=== PATIENT | male | born 1945 | race Caucasian/White ===

== ENCOUNTER → 2016-07-29 | Outpatient (CLI) | payer OTHER ==
[~2016-07-29] MED LIST: ATOR1TAB21 PO; LISI10TA4 PO; METF850T PO; NOVO70VL SQ; OMEP20CA3 PO
[2016-07-29 11:35] LABS: MEAN CORPUSCULAR HGB CONC 31.6 g/dl (32.0-36.5); MEAN CORPUSCULAR VOLUME 79.1 fl (80.0-96.0); RED CELL DISTRIBUTION WIDTH 16.6 % (11.5-14.5); WHITE BLOOD COUNT 7.2 K/mm3 (4.0-10.0)
[2016-07-29 11:36] LABS: INR 0.99
[2016-07-29 12:44] LABS: ALBUMIN 3.4 GM/DL (3.2-5.2); ALBUMIN/GLOBULIN RATIO 0.94 (1.00-1.93); ALKALINE PHOSPHATASE 102 U/L (45-117); ALT/SGPT 32 U/L (12-78); ANION GAP 10 MEQ/L (8-16); AST/SGOT 24 U/L (15-37); BILIRUBIN,TOTAL 0.3 MG/DL (0.2-1.0); BLOOD UREA NITROGEN 21 MG/DL (7-18); CALCIUM LEVEL 9.1 MG/DL (8.8-10.2); CARBON DIOXIDE LEVEL 27 MEQ/L (21-32); CHLORIDE LEVEL 101 MEQ/L (98-107); CREATININE FOR GFR 1.03 MG/DL (0.70-1.30); GLOMERULAR FILTRATION RATE > 60.0 (>49); GLUCOSE, FASTING 143 MG/DL (80-110); POTASSIUM SERUM 4.5 MEQ/L (3.5-5.1); SODIUM LEVEL 138 MEQ/L (136-145)
--- NOTE | 2016-07-30 02:39 | REP ---
Clinical: Hypertension and chest pain. Technique: PA and lateral. Comparison: 05/31/2014. Findings: Left sided pleuroparenchymal changes appear relatively stable although subtle acute left basilar process cannot be excluded. The right hemithorax is clear. Visualized mediastinum and cardiac silhouette are normal. Skeletal structures are intact. Impression: Stable pleuroparenchymal changes involving the left hemithorax. While no obvious new findings are appreciated. Subtle superimposed acute process cannot be excluded. Signed by Jasmeet Plummer MD 07/30/2016 02:32 A
--- NOTE | 2016-07-30 07:10 | ECGEPIP ---
Stationary ECG Study [facility] Test Date: 2016-07-29 Pat Name: DHRUV NEWMAN Department: Room: - Gender: M Adolescent Specialist: : [id number] Requested By: Maria Del Carmen Sánchez Order Number: [id number] Reading MD: Crispin Long Measurements Intervals [place] Rate: 70 P: 53 DE: 139 QRS: 22 QRSD: 76 T: 5 QT: 366 QTc: 396 Interpretive Statements Normal sinus rhythm with sinus arrhythmia Delayed anterior R-wave progression Nonspecific T-wave abnormality No significant change since 07/30/2015 Electronically Signed On 07-30-2016 7:09:37 EDT by Crispin Long
== END ==
LOC: M ADMPAT 09:52
PROVIDERS: ATTEND Orthopaedic Surgery
DX: Z01.818 Encounter for other preprocedural examination (principal); M13.861 Other specified arthritis, right knee

== ENCOUNTER 2016-08-12 08:35 | Inpatient (IN) | payer OTHER ==
[2016-07-29 10:11] VITALS: BP 110/78
--- NOTE | 2016-08-08 15:02 | HPE ---
DATE OF ADMISSION: 08/12/2016 CHIEF COMPLAINT: Right knee pain and stiffness. ATTENDING PHYSICIAN: Dr. Gonzalo Hollis HISTORY OF PRESENT ILLNESS: This is a pleasant 70-year-old male patient with progressively worsening right knee pain and stiffness. He has pain with weightbearing activities and activities of daily living. He has failed to improve with conservative management. He has elected for surgery for his continued symptoms. He has consented for a right total knee arthroplasty. X-rays of his right knee notable for end-stage degenerative changes of the right knee. ALLERGIES: No known drug allergies. CURRENT MEDICATIONS: - metformin 850 mg one tablet three times a day - atorvastatin 20 mg one tablet once per day - lisinopril 20 mg one tablet once per day - Prilosec 20 mg one tablet once per day - Novolin 70/30 10 units as directed, 25 units in the morning and 30 units at night. He adjusts his injections based on his glucose levels. PAST SURGICAL HISTORY: Includes prior surgery on his lungs. MEDICAL HISTORY: Includes type 2 diabetes, elevated cholesterol, hypertension, gastric reflux disease and erectile dysfunction. SOCIAL HISTORY: He does not smoke. He does not use alcohol. He is currently employed in the [employer] HISTORY: Noncontributory. REVIEW OF SYSTEMS: Denies fever or chills. Denies chest pain, shortness of breath or cough. Denies difficulty breathing. Denies recent upper respiratory infection or urinary tract infection (UTI) symptoms. Notes persistent pain in his right knee with weightbearing activities. Denies nausea or vomiting. PHYSICAL EXAMINATION: Physical exam today reveals a well-nourished, well-developed alert male patient. He walks with a limping gait. He favors his right side. He does not use assistive devices. Examination on the right knee reveals the skin around the knee to be intact, though there are numerous small wounds diffusely along the anterior mckeon consistent with scratching without any signs of infection. There is venous congestion of the right lower extremity. There is 1+ pitting edema of the right lower extremity. The calf is soft, nontender to palpation. Dorsalis pedis, posterior tibialis pulses are palpable. He can sensate light touch, though it is diffusely decreased from the mid mckeon through the foot on the right side. Exam of the knee range of motion reveals 5-95 degrees. Tenderness mainly medially. No irritability with hip range of motion. Neck is supple without adenopathy or jugular venous distention (JVD). Lungs are clear to auscultation without rales or wheeze. HEART: Regular rate and rhythm. ABDOMEN: Bowel sounds are present. VITAL SIGNS Blood pressure 130/70, pulse 84, respirations 18, height 68 inches, weight 178 pounds, temperature 98.4. LABORATORY DATA: The UA is notable for 2+ glucose, otherwise unremarkable. Urine culture with no growth. Nasal and sinus cultures notable for Moraxella catarrhalis, but no methicillin resistant Staphylococcus aureus (MRSA), does not require treatment at this juncture. Chest x-ray: Chronic changes of left hemithorax. No acute cardiopulmonary process noted. EKG: Sinus rhythm with a sinus arrhythmia. PT 13.2, INR 0.99, glucose 143, BUN 20, creatinine 1.03. Sodium 138, potassium 4.5, WBC count is 7.2, RBC count 4.6, hemoglobin 11.5, hematocrit 36.5. DIAGNOSIS: Symptomatic osteoarthritis of the right knee. PLAN: Consented for right total knee arthroplasty by Dr. Hollis.
[~2016-08-12] VITALS: Ht 175.3 cm; Wt 81.6 kg
[2016-08-12] VITALS (7 sets, daily range): BP systolic 137–186; BP diastolic 72–92; O2SAT 99
[~2016-08-12 08:35] MED LIST changes: +BUPIVACAINE LIPOSOME/PF 1.3% 20 ML VIAL (13.3MG/ML)(EXPAREL) As Ordered ONE; -METF850T PO; +METF850T4 PO; +MIDAZOLAM INJ 2 MG/2 ML VIAL (J2250) As Ordered ONE; +ceFAZolin 1GM INJ (J0690) As Ordered ONE; +fentaNYL 100 MCG/2 ML INJECTION (J3010) As Ordered ONE
[2016-08-12] MEDS ORDERED: LR 1,000 ML IV ONE (09:00)
[2016-08-12] MEDS ORDERED: LR 1,000 ML IV SCH ×2 (09:00→13:00)
[2016-08-12] MEDS ORDERED: ACETAMINOPHEN 500 MG TAB PO ONE (09:00)
[2016-08-12] MEDS ORDERED: MIDAZOLAM INJ 2 MG/2 ML VIAL (J2250) As Ordered ONE ×2 (09:19→10:49)
[2016-08-12] MEDS ORDERED: fentaNYL 100 MCG/2 ML INJECTION (J3010) As Ordered ONE (09:19)
[2016-08-12] MEDS ORDERED: TRANEXAMIC ACID 100 MG/ML 10ML VIAL As Ordered ONE (09:45)
[2016-08-12] MEDS ORDERED: EPINEPHrine INJ 1 MG/ML 1ML AMP As Ordered ONE (09:45)
[2016-08-12] MEDS ORDERED: fentaNYL 100 MCG/2 ML INJECTION (J3010) IV ONE (10:30)
[2016-08-12] MEDS ORDERED: MIDAZOLAM INJ 2 MG/2 ML VIAL (J2250) IV ONE (10:30)
[2016-08-12] MEDS ORDERED: PROPOFOL 200 MG/20 ML VIAL As Ordered ONE ×2 (10:49→12:00)
[2016-08-12] MEDS ORDERED: PHENYLephrine HCL 500 MCG/5 ML (100MCG/ML) SYRINGE (J2370) As Ordered ONE (11:13)
[2016-08-12] MEDS ORDERED: dexameTHASONE 10 MG/1 ML VIAL PRES.FREE (J1100) ONE (12:04)
[2016-08-12] MEDS ORDERED: EPINEPHrine INJ 1 MG/ML 1ML AMP ONE (12:04)
[2016-08-12] MEDS ORDERED: ROPIvacaine 0.5% 30 ML INJECTION (J2795) ONE (12:04)
[2016-08-12] MEDS ORDERED: MORPHINE 1MG/ML IN 0.9% NACL 100ML IV BAG As Ordered ONE (12:16)
[2016-08-12] MEDS ORDERED: diphenhydrAMINE INJ 50MG/ML VIAL (J1200) IV PRN (13:00)
[2016-08-12] MEDS ORDERED: NALBUPHINE HCL 10 MG/ML AMP (J2300) IV PRN (13:00)
[2016-08-12] MEDS ORDERED: ACETAMINOPHEN TAB 650MG DOSE (2X325MG) PO PRN (13:00)
[2016-08-12] MEDS ORDERED: fentaNYL 100 MCG/2 ML INJECTION (J3010) IV PRN (13:00)
[2016-08-12] MEDS ORDERED: NALOXONE INJ 0.4 MG/1 ML VIAL (J2310) IV PRN (13:00)
[2016-08-12] MEDS ORDERED: MORPHINE 1MG/ML IN 0.9% NACL 100ML IV BAG IV PRN (13:00)
[2016-08-12] MEDS ORDERED: ONDANSETRON 4MG/2ML VIAL (J2405) IV PRN ×2 (13:00)
[2016-08-12] MEDS ORDERED: FLEET ENEMA PR PRN (13:00)
[2016-08-12] MEDS ORDERED: EPIDURAL/PCA KEYS XX PRN (13:00)
--- NOTE | 2016-08-12 13:59 | CR ---
DATE OF CONSULTATION: 08/12/2016 70-year-old patient who sees Dr. Finn. He underwent a knee replacement today with Dr. Gonzalo Hollis. Hospitalist have been asked to consult for medical issues. He is actually fairly healthy. There was a time about 10 years ago when he had some issues with recurrent pleural effusion. Diagnosis was never established. It appears he underwent decortication procedure of his left lung at that time by Dr. Benson, or at least a procedure that sounds like that. He had remote pulmonary function test in the old record, which showed marked restrictive disease in 2006. Apparently, since that time, he has done well. He denies any functional limitations from a respiratory standpoint currently. He says he is back to doing everything, including working, walking, etc. without shortness of breath. He has no history of cardiac disease. His preop chest x-ray shows only chronic changes. Preop EKG shows poor R-wave progression, otherwise normal. His preoperative lab work is noteworthy for mild anemia with hematocrit of 36 with mild microcytic indices. He states he is due for a colonoscopy and he will mention his anemia to Dr. Finn. Dr. Finn apparently has already spoken to him. He is also a diabetic. He is on metformin and we will begin metformin tomorrow morning provided he does not have any issues with significant nausea and vomiting through the evening, but currently he looks and feels well postop. MEDICATIONS: Pulmonary issues as discussed above in remote past. history of hypertension, hypercholesterolemia, diabetes and gastroesophageal reflux disease. He also has microcytic anemia. He says his last colonoscopy was 8 to 10 years ago. He had right knee replacement today. ALLERGIES: No allergies to medication. SOCIAL HISTORY: Currently works for [employer] . Back in the 70s and 80s he worked for [employer] for about 10 years. He made molds for iron products. 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 No alcohol or tobacco. REVIEW OF SYSTEMS: Review of systems is negative. Currently, he feels fine. He is awake and alert and denies any symptoms whatsoever. PHYSICAL EXAMINATION 130/80, heart rate 80 with occasional PAC on the monitor. Respirations are 16. Temperature is afebrile. GENERAL APPEARANCE: Awake and alert 70-year-old white male. HEENT: Dentition is poor. Neck is supple. Carotids are normal. No bruits. No jugular venous distention (JVD). HEART: Was regular with a short systolic murmur. Chest is clear. He denies any issues on the left chest where he had his prior surgery. Abdomen is unremarkable. There is mild central obesity. Extremities are warm peripherally. He has excellent peripheral pulses. NEUROLOGIC: Intact. IMPRESSION AND PLAN: 1. Postoperative right knee replacement. 2. Microcytic anemia. Needs followup with Dr. Finn. He is due for colonoscopy. He will of a followup CBC in the morning. I anticipate some blood loss with his surgery. I have ordered iron studies. 3. Left lung issues, as above. These appear to be stable. 4. Diabetes. Resume metformin in morning. Otherwise, he is on sliding scale with Humalog 5. A history of hypertension. Resume lisinopril in the morning if blood pressure remains stable in the next 24 hours. 6. Lipids. We have ordered his statin postoperatively. 7. Gastroesophageal reflux disease. He continues on his proton pump inhibitor.
[2016-08-12] MEDS: LR 1,000 ML IV SCH (14:29)
[2016-08-12 15:25] LABS: PERCENT SATURATION 9.2 % (19.7-37.4)
[2016-08-12] MEDS ORDERED: WARFARIN SOD 5 MG TAB PO SCH (17:00)
[2016-08-12] MEDS: HumaLOG INSULIN (NovoLOG) PER UNIT SC SCH (17:30)
[2016-08-12] MEDS: ATORVASTATIN 20 MG TAB PO SCH (20:41)
[2016-08-12] MEDS: LEVEMIR (INSULIN DETEMIR) 1 UNITS/0.01ML SC SCH (21:00)
[2016-08-13] VITALS (7 sets, daily range): BP systolic 130–148; BP diastolic 62–73; O2SAT 94–96
[2016-08-13] MEDS: LR 1,000 ML IV SCH (01:30)
[2016-08-13 05:34] LABS: MEAN CORPUSCULAR HEMOGLOBIN 25.1 pg (27.0-33.0); MEAN CORPUSCULAR VOLUME 78.4 fl (80.0-96.0); RED CELL DISTRIBUTION WIDTH 16.9 % (11.5-14.5); WHITE BLOOD COUNT 7.2 K/mm3 (4.0-10.0)
[2016-08-13 05:50] LABS: INR 1.22
[2016-08-13 05:52] LABS: ANION GAP 5 MEQ/L (8-16); BLOOD UREA NITROGEN 16 MG/DL (7-18); CALCIUM LEVEL 8.6 MG/DL (8.8-10.2); CARBON DIOXIDE LEVEL 30 MEQ/L (21-32); CHLORIDE LEVEL 102 MEQ/L (98-107); CREATININE FOR GFR 1.03 MG/DL (0.70-1.30); GLOMERULAR FILTRATION RATE > 60.0 (>49); GLUCOSE, FASTING 277 MG/DL (80-110); POTASSIUM SERUM 4.3 MEQ/L (3.5-5.1); SODIUM LEVEL 137 MEQ/L (136-145)
[2016-08-13] MEDS ORDERED: ONDANSETRON 4 MG TAB (S0181) PO PRN (07:00)
--- NOTE | 2016-08-13 07:04 | RO ---
DATE OF PROCEDURE: 08/12/2016 PREPROCEDURE DIAGNOSIS: Right knee valgus degenerative arthritis. POSTPROCEDURE DIAGNOSIS: Right knee valgus degenerative arthritis. PROCEDURE: Right total knee arthroplasty using a cruciate sacrificing size #4 with a #4 tibial tray and a 12.5 mm rotating platform polyethylene insert and a size #38 mm button. All components were cemented. Prosthesis made by [employer]. It was a PFC knee. SURGEON: Dr. Maria Del Carmen Hollis. HEAD OF ACADEMIC TECHNOLOGY: Mr. Rodrigo Herron. ANESTHESIA: Spinal with right femoral nerve block. COMPLICATIONS: None. SPECIMENS: The joint surface. ESTIMATED BLOOD LOSS: Less than 20 mL. PROCEDURE: Antibiotics were given intravenously preoperatively and then a successful right femoral nerve block was performed. A tourniquet was placed on the right upper thigh and not inflated. The right lower extremity was prepped and draped in the usual sterile fashion. Then after appropriate time out, the tourniquet was inflated. Then a longitudinal incision was made for a medial parapatellar approach to the knee. Bovie cautery was used to coagulate crossing vessels. Arthrotomy was performed and subperiosteal dissection around the proximal medial portion of the tibia was performed all the way around the posteromedial corner because of significant varus deformity. Proximal lateral tibial plateau was dissected as well. We then everted the patella and flexed the knee. We drilled down the center of the femoral canal followed by the intramedullary blake and the distal femoral cutting block was applied set at 5 degree valgus cut for a right knee at 10 mm resection level. Because of the significant flexion contracture, I took an additional 2 mm at this point. The distal femoral osteotomy was then performed. The AP sizing jig measured at 4.5, thus I pinned it at #4 with a 3 degree external rotation block and then the 4-in-1 block applied The anterior posterior chamfer cuts then performed. At this point because of the varus deformity, I elected to proceed with a cruciate sacrificing knee. At this point, I cleaned out the PCL and the soft tissues within the trochlear notch and then the femoral cutting jig for a cruciate sacrificing femoral component was pinned into position and then we performed the osteotomy in the notch making sure it was nice and flush and we exposed the proximal tibia, used the extramedullary blake to be sure we were parallel to the mechanical access of the tibia and then we referenced off the medial tibial condyle set a 4 mm resection level using the 0 degree flexion block and then pinned it into position and then a secondary check was done with the extramedullary blake and then the proximal tibial osteotomy was performed. The laminar retail office manager was then placed medially and we performed a completion lateral meniscectomy with debridement of the posterior lateral osteophytes, then placed the laminar retail office manager laterally and performed a completion medial meniscectomy with debridement of the posterior medial osteophytes. Spacer block testing, the 10 mm showed us that he was just so lax, had a little varus laxity but is very stable to valgus laxity. Thus I felt the 12.5 gave him the best stability. He still had markedly improved extension compared to preoperatively. We then exposed the proximal tibia size for a size #4 tibial tray which is pinned into position followed by the reamer and broach and then the trial femoral component was applied and then the polyethylene was applied. We trialed between the 12.5 and the 10. The 12.5 seemed to give him the best stability. Thus at this point, I removed all the trial components. The Exparel was introduced subperiosteally around the femur as well as the posterior capsule and the trochlear notch as well as around the parapatellar area and the arthrotomy capsular edges. Mr. Herron mixed the cement on the back table. He was also critical to the success of this difficult operation by helping the manipulate the knee, helping to close the wound, helping to prepare the patient for surgery amongst many other tasks. I prepared the bony surfaces for cementing with copious amount of pulsatile lavage irrigant solution and then once the cement had been mixed, we cemented the tibial tray, removed excess cement, cemented the femoral component, removed excess cement, placed the polyethylene, brought the knee into extension and then everted the patella and cemented the patellar component, the removed the access cement and held it with a clamp until the cement had hardened. While we were waiting, a copious amount of pulsatile lavage irrigant solution was instilled into the knee followed by the tranexamic acid, then we began closing the arthrotomy with first #1 PDS sutures in the apex and at the medial parapatellar area and then a running #1 double arm Stratafix was used to close the capsule, then the tourniquet was released. Deep subdermal tissues were closed with interrupted #2-0 PDS sutures, skin was closed with robert covered by Adaptic dry sterile bulky dressing. He was then transferred to the recovery room in stable condition. There were no intraoperative complications.
[2016-08-13] MEDS: metFORMIN 850 MG TAB PO SCH ×3 (08:39→21:04)
[2016-08-13] MEDS: OMEPRAZOLE 20 MG CAP PO SCH (08:39)
[2016-08-13] MEDS: HumaLOG INSULIN (NovoLOG) PER UNIT SC SCH ×3 (08:39→17:24)
[2016-08-13] MEDS: MOM 30ML SUSPENSION UDC PO SCH (08:39)
[2016-08-13] MEDS: MIRALAX *UNIT DOSE* 17GM PACKET PO SCH (08:39)
[2016-08-13] MEDS: SENOKOT S TAB PO SCH ×2 (08:40→21:04)
[2016-08-13] MEDS: PERCOCET 5MG/325MG TAB PO PRN ×3 (08:40→17:24)
--- NOTE | 2016-08-13 10:24 | REP ---
Clinical: Status post knee replacement. Technique AP and cross-table lateral views. Findings: The patient is status post right knee replacement with normal positioning and appearance to the femoral and tibial components. Overlying postsurgical changes appreciated. Impression: Status post right knee replacement. Signed by Jasmeet Plummer MD 08/13/2016 10:15 A
--- NOTE | 2016-08-13 16:29 | IPNPDOC ---
Subjective Date Seen The patient was seen on 08/13/16. Subjective Chief Complaint/HPI The patient is a 70-year-old male admitted with a reason for visit of Right Knee Arthritis. General: Denies: Chills, Night Sweats Constitutional: Denies: Chills, Fever Eyes: Denies: Pain, Vision change ENT: Denies: Head Aches, Ear Pain Skin: Denies: Rash, Lesions Pulmonary: Denies: Dyspnea, Cough Cardiovascular: Denies: Chest Pain, Palpitations Gastrointestinal: Denies: Nausea, Vomiting Genitourinary: Denies: Dysuria, Frequency Hematologic: Denies: Bruising, Bleeding Excessively Objective Physical Examination General Exam: Positive: Alert, Cooperative, No Acute Distress ENT Exam: Positive: Atraumatic, Mucous membr. moist/pink Neck Exam: Negative: JVD Chest Exam: Positive: Clear to auscultation, Normal air movement Heart Exam: Positive: Rate Normal, Normal S1, Normal S2 Abdomen Exam: Positive: Soft, Negative: Tenderness Extremity Exam: Positive: Other (right knee with limited range of motion due to recent surgery, neurovascularly intact distally) Psych Exam: Positive: Oriented x 3 Assessment /Plan Plan/VTE VTE Prophylaxis Ordered?: Yes Plan S/P Right Knee Replacement Pain Mgmt, DVT prophylaxis as per surgery Hypertension Cont lisinopril Diabetes Mellitus Continue metformin, Levemir Continue insulin sliding scale for additional coverage Dyslipidemia Continue statin GERD Prilosec VS, I&O, 24H, Fishbone Vital Signs/I&O Vital Signs Date Time Temp Pulse Resp B/P (MAP) Pulse Ox O2 Delivery O2 Flow Rate FiO2 08/13/16 14:21 16 08/13/16 14:00 99.2 87 148/73 (98) 99 Room Air 08/13/16 06:00 2.0 I&O- Last 24 Hours up to 6 AM 08/13/16 06:00 Intake Total 2190 ml Output Total 1975 ml Balance 215 ml Laboratory Data 24H LABS Laboratory Tests 2 08/12/16 20:21: Bedside Glucose (Misc Panel) 428H 08/13/16 05:25: Prothrombin Time 15.5H, Prothromb Time International Ratio 1.22, Anion Gap 5L, Glomerular Filtration Rate > 60.0, Blood Urea Nitrogen 16, Creatinine 1.03, Sodium Level 137, Potassium Level 4.3, Chloride Level 102, Carbon Dioxide Level 30, Calcium Level 8.6L 08/13/16 11:33: Bedside Glucose (Misc Panel) 276H CBC/BMP Laboratory Tests 08/13/16 05:25 Red Blood Count 4.00 L, Mean Corpuscular Volume 78.4 L, Mean Corpuscular Hemoglobin 25.1 L, Mean Corpuscular Hemoglobin Concent 32.0, Red Cell Distribution Width 16.9 H, Calcium Level 8.6 L NEFTALI ERVIN MD Aug 13, 2016 16:29
[2016-08-13] MEDS ORDERED: WARFARIN SOD 5 MG TAB PO ONE (17:00)
[2016-08-13] MEDS: LISINOPRIL 10 MG TAB PO SCH (17:23)
[2016-08-13] MEDS: LEVEMIR (INSULIN DETEMIR) 1 UNITS/0.01ML SC SCH (21:00)
[2016-08-13] MEDS: ATORVASTATIN 20 MG TAB PO SCH (21:05)
[2016-08-14] MEDS: PERCOCET 5MG/325MG TAB PO PRN ×3 (03:54→20:05)
[2016-08-14 06:00] VITALS: BP 107/64
[2016-08-14 06:55] LABS: MEAN CORPUSCULAR HEMOGLOBIN 25.3 pg (27.0-33.0); MEAN CORPUSCULAR HGB CONC 32.4 g/dl (32.0-36.5); MEAN CORPUSCULAR VOLUME 78.3 fl (80.0-96.0); RED CELL DISTRIBUTION WIDTH 16.8 % (11.5-14.5); WHITE BLOOD COUNT 9.5 K/mm3 (4.0-10.0)
[2016-08-14 07:03] LABS: INR 1.77
[2016-08-14 07:07] LABS: ANION GAP 6 MEQ/L (8-16); BLOOD UREA NITROGEN 19 MG/DL (7-18); CALCIUM LEVEL 8.9 MG/DL (8.8-10.2); CARBON DIOXIDE LEVEL 29 MEQ/L (21-32); CHLORIDE LEVEL 98 MEQ/L (98-107); CREATININE FOR GFR 0.98 MG/DL (0.70-1.30); GLOMERULAR FILTRATION RATE > 60.0 (>49); GLUCOSE, FASTING 224 MG/DL (80-110); POTASSIUM SERUM 4.4 MEQ/L (3.5-5.1); SODIUM LEVEL 133 MEQ/L (136-145)
[2016-08-14] MEDS: HumaLOG INSULIN (NovoLOG) PER UNIT SC SCH ×3 (08:30→17:30)
[2016-08-14] MEDS: MIRALAX *UNIT DOSE* 17GM PACKET PO SCH (08:30)
[2016-08-14] MEDS: MOM 30ML SUSPENSION UDC PO SCH (08:30)
[2016-08-14] MEDS: metFORMIN 850 MG TAB PO SCH ×3 (08:31→22:00)
[2016-08-14] MEDS: LISINOPRIL 10 MG TAB PO SCH (08:31)
[2016-08-14] MEDS: OMEPRAZOLE 20 MG CAP PO SCH (08:32)
[2016-08-14] MEDS: SENOKOT S TAB PO SCH ×2 (08:32→22:00)
[2016-08-14 09:18] VITALS: O2SAT 97
--- NOTE | 2016-08-14 12:23 | IPNPDOC ---
Subjective Date Seen The patient was seen on 08/14/16. Subjective Chief Complaint/HPI The patient is a 70-year-old male admitted with a reason for visit of Right Knee Arthritis. General: Denies: Chills, Night Sweats Constitutional: Denies: Chills, Fever Eyes: Denies: Pain, Vision change ENT: Denies: Head Aches, Ear Pain Skin: Denies: Rash, Lesions Pulmonary: Denies: Dyspnea, Cough Cardiovascular: Denies: Chest Pain, Palpitations Gastrointestinal: Denies: Nausea, Vomiting Genitourinary: Denies: Dysuria, Frequency Hematologic: Denies: Bruising, Bleeding Excessively Objective Physical Examination General Exam: Positive: Alert, Cooperative, No Acute Distress ENT Exam: Positive: Atraumatic, Mucous membr. moist/pink Neck Exam: Negative: JVD Chest Exam: Positive: Clear to auscultation, Normal air movement Heart Exam: Positive: Rate Normal, Normal S1, Normal S2 Abdomen Exam: Positive: Soft, Negative: Tenderness Extremity Exam: Positive: Other (right knee with limited range of motion due to recent surgery, neurovascularly intact distally) Psych Exam: Positive: Oriented x 3 Assessment /Plan Plan/VTE VTE Prophylaxis Ordered?: Yes Plan S/P Right Knee Replacement Pain Mgmt, DVT prophylaxis as per surgery Hypertension Cont lisinopril Diabetes Mellitus Continue metformin, Levemir Continue insulin sliding scale for additional coverage Dyslipidemia Continue statin GERD Prilosec VS, I&O, 24H, Fishbone Vital Signs/I&O Vital Signs Date Time Temp Pulse Resp B/P (MAP) Pulse Ox O2 Delivery O2 Flow Rate FiO2 08/14/16 09:20 97 Room Air 08/14/16 09:01 14 08/14/16 08:31 107/64 08/14/16 06:00 98.5 86 08/13/16 06:00 2.0 I&O- Last 24 Hours up to 6 AM 08/14/16 05:59 Intake Total 1560 ml Output Total 1650 ml Balance -90 ml Laboratory Data 24H LABS Laboratory Tests 2 08/13/16 17:07: Bedside Glucose (Misc Panel) 223H 08/13/16 20:22: Bedside Glucose (Misc Panel) 278H 08/14/16 06:29: Prothrombin Time 20.7H, Prothromb Time International Ratio 1.77, Anion Gap 6L, Glomerular Filtration Rate > 60.0, Blood Urea Nitrogen 19H, Creatinine 0.98, Sodium Level 133L, Potassium Level 4.4, Chloride Level 98, Carbon Dioxide Level 29, Calcium Level 8.9 08/14/16 11:55: Bedside Glucose (Misc Panel) 267H CBC/BMP Laboratory Tests 08/14/16 06:29 Red Blood Count 4.06 L, Mean Corpuscular Volume 78.3 L, Mean Corpuscular Hemoglobin 25.3 L, Mean Corpuscular Hemoglobin Concent 32.4, Red Cell Distribution Width 16.8 H, Calcium Level 8.9 NEFTALI ERVIN MD Aug 14, 2016 12:23
[2016-08-14 14:00] VITALS: BP 131/71
[2016-08-14] MEDS ORDERED: WARFARIN SOD 5 MG TAB PO ONE (17:00)
[2016-08-14] MEDS: ATORVASTATIN 20 MG TAB PO SCH (21:57)
[2016-08-14 22:00] VITALS: BP 126/83
[2016-08-14] MEDS: LEVEMIR (INSULIN DETEMIR) 1 UNITS/0.01ML SC SCH (22:02)
[2016-08-15 03:25] VITALS: O2SAT 98
[2016-08-15 06:29] LABS: MEAN CORPUSCULAR HEMOGLOBIN 25.2 pg (27.0-33.0); MEAN CORPUSCULAR HGB CONC 32.7 g/dl (32.0-36.5); MEAN CORPUSCULAR VOLUME 76.9 fl (80.0-96.0); RED CELL DISTRIBUTION WIDTH 16.7 % (11.5-14.5); WHITE BLOOD COUNT 6.6 K/mm3 (4.0-10.0)
[2016-08-15 06:41] LABS: INR 1.94
[2016-08-15 06:49] LABS: ANION GAP 6 MEQ/L (8-16); BLOOD UREA NITROGEN 18 MG/DL (7-18); CALCIUM LEVEL 8.6 MG/DL (8.8-10.2); CARBON DIOXIDE LEVEL 30 MEQ/L (21-32); CHLORIDE LEVEL 100 MEQ/L (98-107); CREATININE FOR GFR 0.92 MG/DL (0.70-1.30); GLOMERULAR FILTRATION RATE > 60.0 (>49); GLUCOSE, FASTING 145 MG/DL (80-110); SODIUM LEVEL 136 MEQ/L (136-145)
[2016-08-15] MEDS ORDERED: PERC5TAB12 PO (08:07)
[2016-08-15] MEDS ORDERED: COUM2.5T17 PO (08:07)
[2016-08-15] MEDS: MIRALAX *UNIT DOSE* 17GM PACKET PO SCH (08:18)
[2016-08-15] MEDS: HumaLOG INSULIN (NovoLOG) PER UNIT SC SCH (08:19)
[2016-08-15] MEDS: PERCOCET 5MG/325MG TAB PO PRN (08:19)
[2016-08-15] MEDS: OMEPRAZOLE 20 MG CAP PO SCH (08:19)
[2016-08-15] MEDS: metFORMIN 850 MG TAB PO SCH (08:19)
[2016-08-15 08:20] VITALS: BP 107/64
[2016-08-15] MEDS: MOM 30ML SUSPENSION UDC PO SCH (08:20)
[2016-08-15] MEDS: SENOKOT S TAB PO SCH (08:20)
[2016-08-15] MEDS: LISINOPRIL 10 MG TAB PO SCH (08:20)
[2016-08-15 11:19] VITALS: BP 129/62
--- NOTE | 2016-08-15 15:59 | IPNPDOC ---
Subjective Date Seen The patient was seen on 08/15/16. Subjective Chief Complaint/HPI The patient is a 70-year-old male admitted with a reason for visit of Right Knee Arthritis. General: Denies: Chills, Night Sweats Constitutional: Denies: Chills, Fever Eyes: Denies: Pain, Vision change ENT: Denies: Head Aches, Ear Pain Skin: Denies: Rash, Lesions Pulmonary: Denies: Dyspnea, Cough Cardiovascular: Denies: Chest Pain, Palpitations Gastrointestinal: Denies: Nausea, Vomiting Genitourinary: Denies: Dysuria, Frequency Objective Physical Examination General Exam: Positive: Alert, Cooperative, No Acute Distress ENT Exam: Positive: Atraumatic, Mucous membr. moist/pink Neck Exam: Negative: JVD Chest Exam: Positive: Clear to auscultation, Normal air movement Heart Exam: Positive: Rate Normal, Normal S1, Normal S2 Abdomen Exam: Positive: Soft, Negative: Tenderness Extremity Exam: Positive: Other (right knee with limited range of motion due to recent surgery, neurovascularly intact distally) Psych Exam: Positive: Oriented x 3 Assessment /Plan Plan/VTE VTE Prophylaxis Ordered?: Yes Plan S/P Right Knee Replacement Pain Mgmt, DVT prophylaxis as per surgery Hypertension Cont lisinopril Diabetes Mellitus Continue metformin, Levemir Continue insulin sliding scale for additional coverage Dyslipidemia Continue statin GERD Prilosec VS, I&O, 24H, Natalie Vital Signs/I&O Vital Signs Date Time Temp Pulse Resp B/P (MAP) Pulse Ox O2 Delivery O2 Flow Rate FiO2 08/15/16 11:19 97.9 81 16 129/62 (84) 98 Room Air 08/13/16 06:00 2.0 I&O- Last 24 Hours up to 6 AM 08/15/16 06:00 Intake Total 1320 ml Output Total 1125 ml Balance 195 ml Laboratory Data 24H LABS Laboratory Tests 2 08/14/16 16:55: Bedside Glucose (Misc Panel) 214H 08/14/16 20:11: Bedside Glucose (Misc Panel) 202H 08/15/16 06:10: Prothrombin Time 22.2H, Prothromb Time International Ratio 1.94, Anion Gap 6L, Glomerular Filtration Rate > 60.0, Blood Urea Nitrogen 18, Creatinine 0.92, Sodium Level 136, Potassium Level 4.0, Chloride Level 100, Carbon Dioxide Level 30, Calcium Level 8.6L CBC/BMP Laboratory Tests 08/15/16 06:10 Red Blood Count 3.68 L, Mean Corpuscular Volume 76.9 L, Mean Corpuscular Hemoglobin 25.2 L, Mean Corpuscular Hemoglobin Concent 32.7, Red Cell Distribution Width 16.7 H, Calcium Level 8.6 L NEFTALI ERVIN MD Aug 15, 2016 15:59
--- NOTE | 2016-08-19 09:39 | DSES ---
DATE OF ADMISSION: 08/12/2016 DATE OF DISCHARGE: 08/15/2016 ADMITTING DIAGNOSIS: Osteoarthritis right knee. OTHER DIAGNOSES: 1. Hypertension. 2. Elevated cholesterol. 3. Gastric reflux disease. 4. Anemia. DISCHARGE DIAGNOSIS: Osteoarthritis right knee status post right total knee arthroplasty. OPERATION PERFORMED: Right total knee arthroplasty. HISTORY: This is a pleasant 70-year-old male patient with progressively worsening right knee pain and stiffness. He failed to improve with conservative management. He was admitted for elective knee replacement on the right side. HOSPITAL COURSE: The patient was admitted on day of surgery and underwent a right total knee arthroplasty which was uneventful. He did well in the postoperative period. His hospital course was without complications. He was up with physical therapy per their protocol and his pain was controlled. On the day of discharge, he was doing well. Weight bearing as tolerated on his right lower extremity and moving his right knee to prevent stiffness. He will use adjusted dose Coumadin and thromboembolic deterrent (BENEDICTO) stockings for 30 days postoperatively for deep vein thrombosis (DVT) prophylaxis. He will use oral pain medications for pain control and resume his preoperative medications and diet. He was given instructions to include, but not limited to wound monitoring and activity limitations. He will follow up in our office in 10-14 days for surgical followup. Please refer to the medical record for further details. Edited: 08/19/2016 tremaine
== END 2016-08-15 12:25 | disposition home health service (06) | DRG 470 ==
LOC: M OR 08:35 → M MS5PR 13:45
PROVIDERS: ADMIT Orthopaedic Surgery; ATTEND Orthopaedic Surgery
PROC: 0SRC0J9 Replacement of Right Knee Joint with Synthetic Substitute, Cemented, Open Approach (ICD-10-PCS; principal; 2016-08-12 10:45)
DX: M17.11 Unilateral primary osteoarthritis, right knee (principal); E11.9 Type 2 diabetes mellitus without complications; I10 Essential (primary) hypertension; K21.9 Gastro-esophageal reflux disease without esophagitis; E78.5 Hyperlipidemia, unspecified; Z79.4 Long term (current) use of insulin; Z79.899 Other long term (current) drug therapy

== ENCOUNTER → 2016-08-22 | Outpatient (REF) | payer OTHER ==
[~2016-08-22] MED LIST changes: -BUPIVACAINE LIPOSOME/PF 1.3% 20 ML VIAL (13.3MG/ML)(EXPAREL) As Ordered ONE; +COUM2.5T17 PO; -MIDAZOLAM INJ 2 MG/2 ML VIAL (J2250) As Ordered ONE; +PERC5TAB12 PO; -ceFAZolin 1GM INJ (J0690) As Ordered ONE; -fentaNYL 100 MCG/2 ML INJECTION (J3010) As Ordered ONE
[2016-08-22 15:44] LABS: INR 1.46
== END ==
LOC: M SHH 15:13
PROVIDERS: ATTEND Nurse Practitioner Family
DX: Z79.01 Long term (current) use of anticoagulants (principal)

== ENCOUNTER → 2016-08-26 | Outpatient (REF) | payer OTHER ==
[2016-08-26 11:22] LABS: INR 1.09
== END ==
LOC: M SHH 11:03
PROVIDERS: ATTEND Nurse Practitioner Family
DX: Z79.01 Long term (current) use of anticoagulants (principal)

== ENCOUNTER → 2016-08-29 | Outpatient (REF) | payer OTHER ==
[2016-08-29 14:46] LABS: INR 1.11
== END ==
LOC: M SHH 14:18
PROVIDERS: ATTEND Nurse Practitioner Family
DX: Z79.01 Long term (current) use of anticoagulants (principal)

== ENCOUNTER → 2016-09-02 | Outpatient (REF) | payer OTHER ==
[2016-09-02 15:23] LABS: INR 1.31
== END ==
LOC: M SHH 14:47
PROVIDERS: ATTEND Nurse Practitioner Family
DX: Z79.01 Long term (current) use of anticoagulants (principal)

== ENCOUNTER → 2016-09-05 | Outpatient (REF) | payer OTHER ==
[2016-09-05 14:06] LABS: INR 1.32
== END ==
LOC: M SHH 13:21
PROVIDERS: ATTEND Nurse Practitioner Family
DX: Z79.01 Long term (current) use of anticoagulants (principal)

== ENCOUNTER → 2016-09-09 | Outpatient (REF) | payer OTHER ==
[2016-09-09 13:23] LABS: INR 1.23
== END ==
LOC: M SHH 12:30
PROVIDERS: ATTEND Nurse Practitioner Family
DX: Z79.01 Long term (current) use of anticoagulants (principal)

== ENCOUNTER 2017-04-09 11:39 | Day surgery (SDC) | payer OTHER ==
[~2017-04-09 11:39] MED LIST changes: -ATOR1TAB21 PO; -COUM2.5T17 PO; -LISI10TA4 PO; -METF850T4 PO; -NOVO70VL SQ; -OMEP20CA3 PO; -PERC5TAB12 PO; +PROPOFOL 200 MG/20 ML VIAL As Ordered
[2017-04-09] MEDS: NS 1,000 ML IV (12:06)
[2017-04-09 12:29] LABS: BEDSIDE GLUCOSE 84 MG/DL (83-110)
== END 2017-04-09 14:16 | disposition home or self-care (01) ==
LOC: M OPP 11:39
DX: Z12.11 Encounter for screening for malignant neoplasm of colon (principal); Z86.010 Personal history of colon polyps; D12.2 Benign neoplasm of ascending colon; K64.0 First degree hemorrhoids; K57.30 Diverticulosis of large intestine without perforation or abscess without bleeding; I10 Essential (primary) hypertension; E78.5 Hyperlipidemia, unspecified; E11.9 Type 2 diabetes mellitus without complications; R12 Heartburn; K21.9 Gastro-esophageal reflux disease without esophagitis; M19.90 Unspecified osteoarthritis, unspecified site; G31.84 Mild cognitive impairment of uncertain or unknown etiology; Z79.899 Other long term (current) drug therapy; Z79.4 Long term (current) use of insulin
CPT/HCPCS: 45380

== ENCOUNTER 2017-09-13 09:25 | Emergency (ER) | payer OTHER | END 2017-09-13 12:34 | disposition home or self-care (01) | LOC: M ED 09:25 | DX: M25.561 Pain in right knee (principal); M25.571 Pain in right ankle and joints of right foot; R22.41 Localized swelling, mass and lump, right lower limb; E11.9 Type 2 diabetes mellitus without complications; I10 Essential (primary) hypertension; F41.9 Anxiety disorder, unspecified; K21.9 Gastro-esophageal reflux disease without esophagitis; Z79.899 Other long term (current) drug therapy; Z79.4 Long term (current) use of insulin | CPT/HCPCS: 93971 ==

== ENCOUNTER → 2018-05-12 | Outpatient (CLI) | payer MEDICARE ==
[~2018-05-12] MED LIST changes: +ATOR1TAB21 PO; +COUM2.5T17 PO; +LISI10TA4 PO; +METF850T4 PO; +NOVO70VL SQ; +OMEP20CA3 PO; +PERC5TAB12 PO; -PROPOFOL 200 MG/20 ML VIAL As Ordered
[2018-05-12 10:25] LABS: BASO % 0.5 % (0.0-1.0); EOS # 0.1 10^3/uL (0.0-0.50); EOS % 2.1 % (0.0-3.0); HEMATOCRIT 37.1 % (42.0-52.0); HEMOGLOBIN 11.2 g/dl (13.5-17.5); LYMPH # 1.6 10^3/uL (1.5-4.5); LYMPH % 24.6 % (24.0-44.0); MEAN CORPUSCULAR HGB CONC 30.2 g/dl (32.0-36.5); MEAN CORPUSCULAR VOLUME 76.3 fl (80.0-96.0); MONO # 0.4 10^3/uL (0.0-0.8); MONO % 6.6 % (0.0-5.0); NEUTROPHILS # 4.2 10^3/uL (1.8-7.7); NEUTROPHILS % 65.7 % (36.0-66.0); PLATELET COUNT, AUTOMATED 325 10^3/uL (150-450); RED BLOOD COUNT 4.86 10^6/uL (4.30-6.10); WHITE BLOOD COUNT 6.3 10^3/uL (4.0-10.0)
[2018-05-12 11:14] LABS: ERYTHROCYTE SEDIMENTATION RATE 26 mm/hr (0-20)
== END ==
LOC: M LAB 09:23
PROVIDERS: ATTEND Orthopaedic Surgery
DX: M24.561 Contracture, right knee (principal)

== ENCOUNTER → 2018-12-21 | Outpatient (REF) | payer MEDICARE ==
[~2018-12-21] MED LIST changes: -OMEP20CA3 PO; +OMEP20CA4 PO
[2018-12-21 12:52] LABS: BASO % 0.5 % (0.0-1.0); EOS # 0.1 10^3/uL (0.0-0.5); EOS % 2.2 % (0.0-3.0); HEMATOCRIT 37.6 % (42.0-52.0); HEMOGLOBIN 10.9 g/dl (13.5-17.5); LYMPH # 1.2 10^3/uL (1.5-5.0); LYMPH % 18.6 % (24.0-44.0); MEAN CORPUSCULAR HEMOGLOBIN 23.2 pg (27.0-33.0); MEAN CORPUSCULAR VOLUME 80.2 fl (80.0-96.0); MONO # 0.5 10^3/uL (0.0-0.8); MONO % 7.1 % (0.0-5.0); NEUTROPHILS # 4.5 10^3/uL (1.5-8.5); NEUTROPHILS % 71.1 % (36.0-66.0); PLATELET COUNT, AUTOMATED 335 10^3/uL (150-450); RED BLOOD COUNT 4.69 10^6/uL (4.30-6.10); WHITE BLOOD COUNT 6.4 10^3/uL (4.0-10.0)
[2018-12-21 13:52] LABS: ERYTHROCYTE SEDIMENTATION RATE 39 mm/hr (0-20)
== END ==
LOC: M LABDRAW1 11:35
PROVIDERS: ATTEND Orthopaedic Surgery
DX: M25.561 Pain in right knee (principal)

== ENCOUNTER → 2019-03-17 | Outpatient (CLI) | payer MEDICARE ==
[~2019-03-17] MED LIST changes: +OMEP1CAP73 PO; -OMEP20CA4 PO
--- NOTE | 2019-03-17 13:50 | REP ---
TRIPLE PHASE BONE SCAN OF THE KNEES: Following the intravenous administration of 22 millicuries technetium 99m MDP, patient's knees are imaged in the flow phase in the anterior and posterior projections. There is symmetrical blood flow. Immediate blood pool and two-hour delayed images are performed of the knees in various projections. Photopenic right knee prosthesis is noted. There is mild blood pooling in the right suprapatellar bursal region. There is mild increased uptake in the medial and lateral tibial plateaus and femoral condyles of the right knee adjacent to the metallic prosthetic components. No abnormality is seen of the left knee osseous structures. IMPRESSION: Right knee prosthesis. Mild increased uptake in the femoral condyles and tibial plateaus on the right is nonspecific. This could be postsurgical uptake. Some degree of loosening cannot totally be excluded. Electronically Signed by Surendra Solomon MD 03/17/2019 11:03 P
== END ==
LOC: M RAD 07:54
PROVIDERS: ATTEND Orthopaedic Surgery
DX: M25.561 Pain in right knee (principal); Z96.651 Presence of right artificial knee joint

== ENCOUNTER → 2019-07-20 | Outpatient (REF) | payer MEDICARE ==
[2019-07-20 15:42] LABS: SOURCE, BODY FLUID RT KNEE
[2019-07-20 15:43] LABS: SYNOVIAL FLUID COLOR PALE YELLOW (YELLOW)
[2019-07-20 15:45] LABS: CRYSTALS, BODY FLUID NONE SEEN (NONE SEEN); SOURCE, BODY FLUID CRYSTALS RT KNEE
[2019-07-20 16:17] LABS: SOURCE, BODY FLUID GLUCOSE RT KNEE; SOURCE, BODY FLUID URIC ACID RT KNEE
[2019-07-21 04:26] LABS: BODY FLUID RHEUMATOID SCREEN NEGATIVE (NEGATIVE); MUCIN CLOT TEST 4+ (4+)
== END ==
LOC: M LAB REF 15:09
PROVIDERS: ATTEND Orthopaedic Surgery
DX: M25.561 Pain in right knee (principal)

== ENCOUNTER → 2019-10-30 | Outpatient (CLI) | payer MEDICARE | LOC: M LABSMTC 10:05 | PROVIDERS: ATTEND Anesthesiology | DX: Z01.818 Encounter for other preprocedural examination (principal); Z11.59 Encounter for screening for other viral diseases; Z20.828 Contact with and (suspected) exposure to other viral communicable diseases | CPT/HCPCS: C9803; U0003 ==

== ENCOUNTER 2019-11-04 09:39 | Day surgery (SDC) | payer MEDICARE ==
[~2019-11-04] VITALS: Ht 175.3 cm; Wt 84.4 kg
[~2019-11-04 09:39] MED LIST changes: +DUOVISC (0.50ML VISCOAT/0.55ML PROVISC) OPHTH KIT As Ordered ONE; +OFLOXACIN 0.3 % (OCUFLOX) OPTH SOL 5ML OD ONE; +PHENYLEPHRINE 2.5% OPHTH SOL 2ML OD ONE; +POVIDONE-IODINE 5% OPHTH PREP SOL 30ML As Ordered ONE; +PROPARACAINE 0.5% OPHTH SOL 15ML OD ONE; +TROPICAMIDE 1% OPHTH SOLN 2ML OD ONE
[2019-11-04] MEDS ORDERED: OFLOXACIN 0.3 % (OCUFLOX) OPTH SOL 5ML As Ordered ONE (11:18)
[2019-11-04] MEDS ORDERED: TROPICAMIDE 1% OPHTH SOLN 2ML As Ordered ONE (11:18)
[2019-11-04] MEDS ORDERED: fentaNYL 100 MCG/2 ML INJECTION (J3010) As Ordered ONE (12:25)
[2019-11-04] MEDS ORDERED: MIDAZOLAM INJ 2MG/2ML VIAL (J2250 PER 1MG) As Ordered ONE (12:25)
[2019-11-04] MEDS ORDERED: CEFUROXIME 1MG/0.1ML INTRACAMERAL INJ As Ordered ONE (12:26)
[2019-11-04] MEDS ORDERED: BSS IRR 500ML/OMIDRIA 4ML IRR BAG (OR ONLY) (J1097 PER ML) As Ordered ONE (12:26)
[2019-11-04 13:00] VITALS: BP 119/65
== END 2019-11-04 13:20 | disposition home or self-care (01) ==
LOC: M SDC 09:39
PROVIDERS: ATTEND Ophthalmology
DX: H25.11 Age-related nuclear cataract, right eye (principal); E78.00 Pure hypercholesterolemia, unspecified; E11.9 Type 2 diabetes mellitus without complications; K21.9 Gastro-esophageal reflux disease without esophagitis; M17.11 Unilateral primary osteoarthritis, right knee; Z79.84 Long term (current) use of oral hypoglycemic drugs; Z79.899 Other long term (current) drug therapy
CPT/HCPCS: 66984; J1097; J2250; J3010; V2632

== ENCOUNTER → 2019-11-06 | Outpatient (CLI) | payer MEDICARE ==
[~2019-11-06] MED LIST changes: -DUOVISC (0.50ML VISCOAT/0.55ML PROVISC) OPHTH KIT As Ordered ONE; -OFLOXACIN 0.3 % (OCUFLOX) OPTH SOL 5ML OD ONE; -PHENYLEPHRINE 2.5% OPHTH SOL 2ML OD ONE; -POVIDONE-IODINE 5% OPHTH PREP SOL 30ML As Ordered ONE; -PROPARACAINE 0.5% OPHTH SOL 15ML OD ONE; -TROPICAMIDE 1% OPHTH SOLN 2ML OD ONE
== END ==
LOC: M LABSMTC 09:29
PROVIDERS: ATTEND Anesthesiology
DX: Z01.812 Encounter for preprocedural laboratory examination (principal); Z20.828 Contact with and (suspected) exposure to other viral communicable diseases
CPT/HCPCS: C9803; U0003

== ENCOUNTER 2019-11-11 06:19 | Day surgery (SDC) | payer MEDICARE ==
[~2019-11-11] VITALS: Ht 175.3 cm; Wt 82.1 kg
[2019-11-11] MEDS ORDERED: PROPARACAINE 0.5% OPHTH SOL 15ML As Ordered ONE (06:32)
[2019-11-11] MEDS ORDERED: PHENYLEPHRINE 2.5% OPHTH SOL 2ML As Ordered ONE (06:32)
[2019-11-11] MEDS ORDERED: OFLOXACIN 0.3 % (OCUFLOX) OPTH SOL 5ML As Ordered ONE (06:32)
[2019-11-11] MEDS ORDERED: TROPICAMIDE 1% OPHTH SOLN 2ML As Ordered ONE (06:32)
[2019-11-11] MEDS ORDERED: DUOVISC (0.50ML VISCOAT/0.55ML PROVISC) OPHTH KIT As Ordered ONE (06:45)
[2019-11-11] MEDS ORDERED: POVIDONE-IODINE 5% OPHTH PREP SOL 30ML As Ordered ONE (06:45)
[2019-11-11] MEDS ORDERED: BSS IRR 500ML/OMIDRIA 4ML IRR BAG (OR ONLY) (J1097 PER ML) As Ordered ONE (06:46)
[2019-11-11] MEDS ORDERED: CEFUROXIME 1MG/0.1ML INTRACAMERAL INJ As Ordered ONE (06:46)
[2019-11-11] MEDS ORDERED: PROPARACAINE 0.5% OPHTH SOL 15ML OS ONE (07:00)
[2019-11-11] MEDS ORDERED: OFLOXACIN 0.3 % (OCUFLOX) OPTH SOL 5ML OS ONE (07:00)
[2019-11-11] MEDS ORDERED: TROPICAMIDE 1% OPHTH SOLN 2ML OS ONE (07:00)
[2019-11-11] MEDS ORDERED: PHENYLEPHRINE 2.5% OPHTH SOL 2ML OS ONE (07:00)
[2019-11-11] MEDS ORDERED: MIDAZOLAM INJ 2MG/2ML VIAL (J2250 PER 1MG) As Ordered ONE (07:36)
[2019-11-11] MEDS ORDERED: fentaNYL 100 MCG/2 ML INJECTION (J3010) As Ordered ONE (07:36)
[2019-11-11 08:05] VITALS: BP 141/69
== END 2019-11-11 08:54 | disposition home or self-care (01) ==
LOC: M SDC 06:19
PROVIDERS: ATTEND Ophthalmology
DX: H25.12 Age-related nuclear cataract, left eye (principal); I10 Essential (primary) hypertension; E78.5 Hyperlipidemia, unspecified; E11.9 Type 2 diabetes mellitus without complications; K21.9 Gastro-esophageal reflux disease without esophagitis; Z79.84 Long term (current) use of oral hypoglycemic drugs; Z79.899 Other long term (current) drug therapy
CPT/HCPCS: 66984; J1097; J2250; J3010; V2632

== ENCOUNTER → 2021-03-06 | Outpatient (CLI) | payer MEDICARE ==
[~2021-03-06] MED LIST changes: +LISI10TA22 PO; -LISI10TA4 PO
== END ==
LOC: M RAD 13:55
PROVIDERS: ATTEND Internal Medicine Cardiovascular Disease
DX: R06.00 Dyspnea, unspecified (principal)

== ENCOUNTER → 2021-07-05 | Outpatient (CLI) | payer MEDICARE | LOC: M PLAIMG 12:04 | PROVIDERS: ATTEND Physician Assistant | DX: M51.36 Other intervertebral disc degeneration, lumbar region (principal) ==

== ENCOUNTER 2022-02-12 08:12 | Emergency (ER) | payer MEDICARE ==
[~2022-02-12] VITALS: Ht 172.7 cm; Wt 85.9 kg
[2022-02-12 08:13] VITALS: BP 137/60
== END 2022-02-12 08:38 | disposition left against medical advice (07) ==
LOC: M ED 08:12
DX: Z53.21 Procedure and treatment not carried out due to patient leaving prior to being seen by health care provider (principal)

== ENCOUNTER → 2022-09-13 | Outpatient (CLI) | payer MEDICARE ==
[2022-09-13 06:52] LABS: PLATELET COUNT, AUTOMATED 269 10^3/uL (150-450)
[2022-09-13 07:06] LABS: INR 0.91; PROTHROMBIN TIME 12.5 SECONDS (12.5-14.5)
[2022-09-13 07:07] LABS: PARTIAL THROMBOPLASTIN TIME 35.4 SECONDS (24.8-34.2)
[2022-09-13 07:41] LABS: COLLAGEN EPINEPHRINE 96 SECONDS (74-162)
== END ==
LOC: M LAB 06:11
PROVIDERS: ATTEND Physical Medicine & Rehabilitation
DX: Z01.818 Encounter for other preprocedural examination (principal); Z79.01 Long term (current) use of anticoagulants

== ENCOUNTER → 2022-09-24 | Outpatient (CLI) | payer MEDICARE | LOC: M RAD 10:19 | PROVIDERS: ATTEND Internal Medicine | DX: R06.00 Dyspnea, unspecified (principal) ==

== ENCOUNTER → 2022-10-07 | Outpatient (CLI) | payer MEDICARE ==
[~2022-10-07] MED LIST changes: +GABA-282 PO; +INSUDET SC; +INSUH10VL SC; +MECL-86 PO; +OMEP-173 PO; +TIZA10TA PO
== END ==
LOC: M RAD 08:14
PROVIDERS: ATTEND Internal Medicine Critical Care Medicine
DX: R06.00 Dyspnea, unspecified (principal)

== ENCOUNTER 2022-10-11 11:59 | Day surgery (SDC) | payer MEDICARE ==
[~2022-10-11] VITALS: Ht 175.3 cm; Wt 78.0 kg
[2022-10-11 12:38] VITALS: TEMP 97.1
[2022-10-11 12:49] LABS: HEMATOCRIT 42.4 % (42.0-52.0); HEMOGLOBIN 13.4 g/dl (13.5-17.5); MEAN CORPUSCULAR HEMOGLOBIN 25.3 pg (27.0-33.0); MEAN CORPUSCULAR HGB CONC 31.6 g/dl (32.0-36.5); MEAN CORPUSCULAR VOLUME 80.2 fl (80.0-96.0); PLATELET COUNT, AUTOMATED 262 10^3/uL (150-450); RED BLOOD COUNT 5.29 10^6/uL (4.30-6.10); WHITE BLOOD COUNT 6.9 10^3/uL (4.0-10.0)
[2022-10-11 13:04] LABS: INR 1.09; PROTHROMBIN TIME 13.8 SECONDS (12.5-14.5)
[2022-10-11 13:05] LABS: PARTIAL THROMBOPLASTIN TIME 35.3 SECONDS (24.8-34.2)
[2022-10-11 13:14] LABS: LDH LACTATE DEHYDROGENASE 175 U/L (120-246)
[2022-10-11 13:15] LABS: ALBUMIN 3.4 G/DL (3.2-5.2); ALKALINE PHOSPHATASE 127 U/L (46-116); ALT/SGPT 18 U/L (7.0-40); AST/SGOT 14 U/L (<34); BILIRUBIN,TOTAL 0.5 MG/DL (0.3-1.2); BLOOD UREA NITROGEN 13 MG/DL (9-23); CALCIUM LEVEL 9.2 MG/DL (8.3-10.6); CARBON DIOXIDE LEVEL 27 MMOL/L (20-31); CHLORIDE LEVEL 102 MMOL/L (98-107); CREATININE FOR GFR 0.89 MG/DL (0.70-1.30); GLOMERULAR FILTRATION RATE > 60.0 (>42); GLUCOSE, FASTING 120 MG/DL (74-106); POTASSIUM SERUM 4.2 MMOL/L (3.5-5.1); SODIUM LEVEL 139 MMOL/L (136-145); TOTAL PROTEIN 6.8 G/DL (5.7-8.2)
[2022-10-11 13:51] VITALS: BP 149/83; O2SAT 99
[2022-10-11 15:26] LABS: LDH, BODY FLUID 367 U/L (NOT ESTABLISHED); SOURCE, BODY FLUID LDH PLEURAL
[2022-10-11 15:27] LABS: SOURCE, BODY FLUID TOT PROTEIN PLEURAL; TOTAL PROTEIN, BODY FLUID 3.9 G/DL (NOT ESTABLISHED)
== END 2022-10-11 15:18 | disposition home or self-care (01) ==
LOC: M OPP 11:59
PROVIDERS: ATTEND Internal Medicine Critical Care Medicine
DX: J98.4 Other disorders of lung (principal); J91.8 Pleural effusion in other conditions classified elsewhere; J90 Pleural effusion, not elsewhere classified; Z79.01 Long term (current) use of anticoagulants; E11.9 Type 2 diabetes mellitus without complications; R06.00 Dyspnea, unspecified

== ENCOUNTER → 2022-10-29 | Outpatient (CLI) | payer MEDICARE ==
[~2022-10-29] MED LIST changes: +ISOVUE-370 76% 100ML VIAL As Ordered ONE
== END ==
LOC: M RAD 06:51
PROVIDERS: ATTEND Internal Medicine Critical Care Medicine
DX: J90 Pleural effusion, not elsewhere classified (principal)
CPT/HCPCS: 71260; Q9967

== ENCOUNTER → 2022-12-12 | Outpatient (CLI) | payer MEDICARE ==
[~2022-12-12] MED LIST changes: -ISOVUE-370 76% 100ML VIAL As Ordered ONE
[2022-12-12 13:10] VITALS: TEMP 97.5
[2022-12-12 13:42] LABS: BASO % 0.4 % (0.0-1.0); EOS # 0.1 10^3/uL (0.0-0.5); EOS % 1.5 % (0.0-3.0); HEMATOCRIT 42.1 % (42.0-52.0); HEMOGLOBIN 13.4 g/dl (13.5-17.5); LYMPH # 1.2 10^3/uL (1.5-5.0); LYMPH % 16.9 % (24.0-44.0); MEAN CORPUSCULAR HEMOGLOBIN 26.1 pg (27.0-33.0); MEAN CORPUSCULAR HGB CONC 31.8 g/dl (32.0-36.5); MEAN CORPUSCULAR VOLUME 82.1 fl (80.0-96.0); MONO # 0.5 10^3/uL (0.0-0.8); MONO % 6.4 % (2.0-8.0); NEUTROPHILS # 5.3 10^3/uL (1.5-8.5); NEUTROPHILS % 74.2 % (36.0-66.0); PLATELET COUNT, AUTOMATED 260 10^3/uL (150-450); RED BLOOD COUNT 5.13 10^6/uL (4.30-6.10); WHITE BLOOD COUNT 7.1 10^3/uL (4.0-10.0)
[2022-12-12 13:54] LABS: INR 1.02; PARTIAL THROMBOPLASTIN TIME 35.1 SECONDS (24.8-34.2); PROTHROMBIN TIME 13.1 SECONDS (12.5-14.5)
[2022-12-12 14:00] LABS: LDH LACTATE DEHYDROGENASE 160 U/L (120-246)
[2022-12-12 14:01] LABS: ALBUMIN 3.5 G/DL (3.2-5.2); ALKALINE PHOSPHATASE 122 U/L (46-116); ALT/SGPT 15 U/L (7.0-40); AST/SGOT 17 U/L (<34); BILIRUBIN,TOTAL 0.4 MG/DL (0.3-1.2); BLOOD UREA NITROGEN 14 MG/DL (9-23); CALCIUM LEVEL 9.1 MG/DL (8.3-10.6); CARBON DIOXIDE LEVEL 30 MMOL/L (20-31); CHLORIDE LEVEL 100 MMOL/L (98-107); CREATININE FOR GFR 0.81 MG/DL (0.70-1.30); GLOMERULAR FILTRATION RATE > 60.0 (>42); GLUCOSE, FASTING 162 MG/DL (74-106); POTASSIUM SERUM 4.4 MMOL/L (3.5-5.1); SODIUM LEVEL 138 MMOL/L (136-145)
[2022-12-12 14:47] LABS: PH BODY FLUID 7.451 UNITS (NOT ESTABLISHED); SOURCE, BODY FLUID pH PLEURAL
[2022-12-12 15:00] LABS: APPEARANCE, BODY FLUID CLOUDY (CLEAR); PLEURAL FL COLOR RED (COLORLESS); SOURCE, BODY FLUID PLEURAL
[2022-12-12 15:17] LABS: SOURCE, BODY FLUID GLUCOSE PLEURAL
[2022-12-12 15:19] LABS: AMYLASE, BODY FLUID 21 U/L (NOT ESTABLISHED); LDH, BODY FLUID 259 U/L (NOT ESTABLISHED); SOURCE, BODY FLUID AMYLASE PLEURAL; SOURCE, BODY FLUID LDH PLEURAL
[2022-12-12 15:20] LABS: SOURCE, BODY FLUID TOT PROTEIN PLEURAL; TOTAL PROTEIN, BODY FLUID 3.5 G/DL (NOT ESTABLISHED)
[2022-12-12 15:45] VITALS: BP 125/61; O2SAT 98
== END ==
LOC: M IRPRO 12:51
PROVIDERS: ATTEND Internal Medicine Critical Care Medicine
DX: J90 Pleural effusion, not elsewhere classified (principal)

== ENCOUNTER → 2023-03-26 | Outpatient (CLI) | payer MEDICARE ==
[2023-03-26 12:04] LABS: URIC ACID 3.5 MG/DL (3.7-9.2)
[2023-03-26 12:08] LABS: ALBUMIN 3.2 G/DL (3.2-5.2); ALKALINE PHOSPHATASE 117 U/L (46-116); ALT/SGPT 18 U/L (7.0-40); AST/SGOT 19 U/L (<34); BILIRUBIN,TOTAL 0.4 MG/DL (0.3-1.2); BLOOD UREA NITROGEN 17 MG/DL (9-23); CALCIUM LEVEL 8.7 MG/DL (8.3-10.6); CARBON DIOXIDE LEVEL 29 MMOL/L (20-31); CHLORIDE LEVEL 102 MMOL/L (98-107); CREATININE FOR GFR 0.84 MG/DL (0.70-1.30); GLOMERULAR FILTRATION RATE > 60.0 (>42); GLUCOSE, FASTING 200 MG/DL (74-106); POTASSIUM SERUM 4.4 MMOL/L (3.5-5.1); SODIUM LEVEL 137 MMOL/L (136-145); TOTAL PROTEIN 6.4 G/DL (5.7-8.2)
[2023-03-26 13:31] LABS: RHEUMATOID FACTOR QUANT < 3.5 IU/ML (<14)
== END ==
LOC: M LAB 08:21
PROVIDERS: ATTEND Physical Medicine & Rehabilitation
DX: M47.897 Other spondylosis, lumbosacral region (principal)

== ENCOUNTER → 2023-04-02 | Outpatient (CLI) | payer MEDICARE | LOC: M PLAIMG 08:00 | PROVIDERS: ATTEND Internal Medicine Critical Care Medicine | DX: J90 Pleural effusion, not elsewhere classified (principal) ==

== ENCOUNTER → 2023-04-09 | Outpatient (CLI) | payer MEDICARE ==
[2023-04-09 12:26] LABS: PLATELET COUNT, AUTOMATED 297 10^3/uL (150-450)
[2023-04-09 12:38] LABS: PROTHROMBIN TIME 12.9 SECONDS (12.5-14.5)
[2023-04-09 12:39] LABS: PARTIAL THROMBOPLASTIN TIME 33.4 SECONDS (24.8-34.2)
== END ==
LOC: M LAB 11:50
PROVIDERS: ATTEND Physical Medicine & Rehabilitation
DX: Z01.818 Encounter for other preprocedural examination (principal); Z79.01 Long term (current) use of anticoagulants

== ENCOUNTER → 2023-06-02 | Outpatient (CLI) | payer MEDICARE ==
[2023-06-02 09:15] LABS: COLLAGEN EPINEPHRINE 84 SECONDS (74-162)
== END ==
LOC: M LAB 08:09
PROVIDERS: ATTEND Internal Medicine Critical Care Medicine
DX: R06.00 Dyspnea, unspecified (principal)

== ENCOUNTER → 2023-07-02 | Outpatient (CLI) | payer MEDICARE | LOC: M RAD 14:15 | PROVIDERS: ATTEND Thoracic Surgery (Cardiothoracic Vascular Surgery) | DX: J90 Pleural effusion, not elsewhere classified (principal) ==

== ENCOUNTER → 2023-07-16 | Outpatient (CLI) | payer MEDICARE | LOC: M RAD 07:42 | PROVIDERS: ATTEND Internal Medicine Critical Care Medicine | DX: J90 Pleural effusion, not elsewhere classified (principal); R91.8 Other nonspecific abnormal finding of lung field ==

== ENCOUNTER → 2023-07-25 | Outpatient (CLI) | payer MEDICARE ==
[2023-07-25 07:20] VITALS: TEMP 97.6
[2023-07-25 08:07] LABS: BASO % 0.4 % (0.0-1.0); EOS # 0.1 10^3/uL (0.0-0.5); EOS % 1.4 % (0.0-3.0); HEMATOCRIT 38.6 % (42.0-52.0); HEMOGLOBIN 12.4 g/dl (13.5-17.5); LYMPH % 12.7 % (24.0-44.0); MEAN CORPUSCULAR HEMOGLOBIN 25.1 pg (27.0-33.0); MEAN CORPUSCULAR HGB CONC 32.1 g/dl (32.0-36.5); MEAN CORPUSCULAR VOLUME 78.1 fl (80.0-96.0); MONO # 0.5 10^3/uL (0.0-0.8); MONO % 6.6 % (2.0-8.0); NEUTROPHILS % 78.3 % (36.0-66.0); PLATELET COUNT, AUTOMATED 307 10^3/uL (150-450); RED BLOOD COUNT 4.94 10^6/uL (4.30-6.10); WHITE BLOOD COUNT 7.7 10^3/uL (4.0-10.0)
[2023-07-25 08:23] LABS: INR 1.02; PARTIAL THROMBOPLASTIN TIME 33.6 SECONDS (24.8-34.2); PROTHROMBIN TIME 13.1 SECONDS (12.5-14.5)
[2023-07-25 08:30] LABS: LDH LACTATE DEHYDROGENASE 155 U/L (120-246)
[2023-07-25 08:31] LABS: ALBUMIN 3.7 G/DL (3.2-5.2); ALKALINE PHOSPHATASE 120 U/L (46-116); ALT/SGPT 18 U/L (7.0-40); AST/SGOT 15 U/L (<34); BILIRUBIN,TOTAL 0.4 MG/DL (0.3-1.2); BLOOD UREA NITROGEN 13 MG/DL (9-23); CALCIUM LEVEL 9.3 MG/DL (8.3-10.6); CARBON DIOXIDE LEVEL 28 MMOL/L (20-31); CHLORIDE LEVEL 101 MMOL/L (98-107); CREATININE FOR GFR 0.89 MG/DL (0.70-1.30); GLOMERULAR FILTRATION RATE > 60.0 (>42); GLUCOSE, FASTING 212 MG/DL (74-106); POTASSIUM SERUM 4.3 MMOL/L (3.5-5.1); SODIUM LEVEL 135 MMOL/L (136-145); TOTAL PROTEIN 7.2 G/DL (5.7-8.2)
[2023-07-25 09:20] LABS: PH BODY FLUID 7.321 UNITS (NOT ESTABLISHED)
[2023-07-25 09:52] LABS: SOURCE, BODY FLUID ALBUMIN PLEURAL
[2023-07-25 09:58] LABS: PLEURAL FL COLOR RED (COLORLESS); SOURCE, BODY FLUID PLEURAL; SOURCE, BODY FLUID GLUCOSE PLEURAL
[2023-07-25 09:59] LABS: AMYLASE, BODY FLUID 21 U/L (NOT ESTABLISHED); APPEARANCE, BODY FLUID TURBID (CLEAR); LDH, BODY FLUID 528 U/L (NOT ESTABLISHED); SOURCE, BODY FLUID AMYLASE PLEURAL; SOURCE, BODY FLUID LDH PLEURAL
[2023-07-25 10:00] LABS: SOURCE, BODY FLUID TOT PROTEIN PLEURAL; TOTAL PROTEIN, BODY FLUID 3.1 G/DL (NOT ESTABLISHED)
[2023-07-25 10:02] LABS: SOURCE, BODY FLUID pH PLEURAL
[2023-07-25 10:45] VITALS: BP 115/65; O2SAT 98
== END ==
LOC: M IRPRO 07:07
PROVIDERS: ATTEND Internal Medicine Critical Care Medicine
DX: J90 Pleural effusion, not elsewhere classified (principal)

== ENCOUNTER → 2023-11-07 | Outpatient (CLI) | payer MEDICARE | LOC: M PLAIMG 11:21 | PROVIDERS: ATTEND Physical Medicine & Rehabilitation | DX: M47.897 Other spondylosis, lumbosacral region (principal) ==

== ENCOUNTER → 2023-12-01 | Outpatient (CLI) | payer MEDICARE ==
[~2023-12-01] MED LIST changes: +GABA-1172 PO; -GABA-282 PO
== END ==
LOC: M PLAIMG 13:46
PROVIDERS: ATTEND Internal Medicine Critical Care Medicine
DX: J90 Pleural effusion, not elsewhere classified (principal)

== ENCOUNTER 2023-12-11 08:10 | Inpatient (IN) | payer MEDICARE ==
[~2023-12-11] VITALS: Ht 175.3 cm; Wt 78.4 kg
[2023-12-11] VITALS (20 sets, daily range): BP systolic 111–136; BP diastolic 57–98; TEMP 97.2–97.8; O2SAT 94–99
[2023-12-11] MEDS ORDERED: INSU100I14 SQ ×2 (09:37→09:41)
[2023-12-11] MEDS ORDERED: HOME MED LIST COMPLETE! XX SCH (09:45)
[2023-12-11 10:08] LABS: BASO % 0.4 % (0.0-1.0); EOS # 0.1 10^3/uL (0.0-0.5); EOS % 1.3 % (0.0-3.0); HEMATOCRIT 37.1 % (42.0-52.0); HEMOGLOBIN 11.8 g/dl (13.5-17.5); LYMPH # 0.9 10^3/uL (1.5-5.0); LYMPH % 13.3 % (24.0-44.0); MEAN CORPUSCULAR HEMOGLOBIN 25.2 pg (27.0-33.0); MEAN CORPUSCULAR HGB CONC 31.8 g/dl (32.0-36.5); MEAN CORPUSCULAR VOLUME 79.3 fl (80.0-96.0); MONO # 0.4 10^3/uL (0.0-0.8); MONO % 5.8 % (2.0-8.0); NEUTROPHILS # 5.5 10^3/uL (1.5-8.5); NEUTROPHILS % 78.9 % (36.0-66.0); PLATELET COUNT, AUTOMATED 290 10^3/uL (150-450); RED BLOOD COUNT 4.68 10^6/uL (4.30-6.10); WHITE BLOOD COUNT 6.9 10^3/uL (4.0-10.0)
[2023-12-11 10:20] LABS: INR 1.04; PARTIAL THROMBOPLASTIN TIME 37.6 SECONDS (24.8-34.2); PROTHROMBIN TIME 13.3 SECONDS (12.5-14.5)
[2023-12-11] MEDS ORDERED: GLUCOSE 4 GM CHEW PO PRN (10:20)
[2023-12-11] MEDS ORDERED: GLUCAGON INJ 1MG VIAL SC PRN (10:20)
[2023-12-11] MEDS ORDERED: DEXTROSE 50% 50ML SYRINGE IV PRN (10:20)
[2023-12-11 10:35] LABS: ALKALINE PHOSPHATASE 145 U/L (46-116); ALT/SGPT 20 U/L (7.0-40); AST/SGOT 22 U/L (<34); BILIRUBIN,TOTAL 0.2 MG/DL (0.3-1.2); BLOOD UREA NITROGEN 18 MG/DL (9-23); CALCIUM LEVEL 9.6 MG/DL (8.3-10.6); CARBON DIOXIDE LEVEL 26 MMOL/L (20-31); CHLORIDE LEVEL 107 MMOL/L (98-107); CREATININE FOR GFR 0.94 MG/DL (0.70-1.30); GLOMERULAR FILTRATION RATE > 60.0 (>42); GLUCOSE, FASTING 153 MG/DL (74-106); POTASSIUM SERUM 4.5 MMOL/L (3.5-5.1); SODIUM LEVEL 137 MMOL/L (136-145); TOTAL PROTEIN 6.6 G/DL (5.7-8.2)
[2023-12-11] MEDS ORDERED: ISOVUE-370 76% 100ML VIAL As Ordered ONE (10:57)
[2023-12-11 11:09] LABS: PROCALCITONIN 0.07 ng/ml
[2023-12-11] MEDS: tiZANidine 4 MG TAB PO SCH (11:45)
[2023-12-11] MEDS: ENOXAPARIN 40MG/0.4ML SYRINGE (J1650 PER 10MG) SC SCH (11:46)
[2023-12-11] MEDS: INSULIN LISPRO (NovoLOG) PER UNIT SC SCH ×2 (12:00→20:49)
[2023-12-11 14:25] LABS: PERCENT SATURATION 9.5 % (19.7-50.0)
[2023-12-11 14:27] LABS: FOLATE 13.74 NG/ML (>5.4)
[2023-12-11 14:28] LABS: FERRITIN 34.1 NG/ML (10.5-307.3)
[2023-12-11] MEDS: GABAPENTIN 300 MG CAP PO SCH (16:23)
[2023-12-11 18:29] LABS: SOURCE, BODY FLUID ALBUMIN PLEURAL
[2023-12-11 18:30] LABS: APPEARANCE, BODY FLUID CLOUDY (CLEAR); PLEURAL FL COLOR RED (COLORLESS); SOURCE, BODY FLUID PLEURAL
[2023-12-11 18:35] LABS: SOURCE, BODY FLUID GLUCOSE PLEURAL; SOURCE, BODY FLUID TRIG PLEURAL; TRIGLYCERIDE, BODY FLUID 27 MG/DL (NOT ESTABLISHED)
[2023-12-11 18:37] LABS: AMYLASE, BODY FLUID < 20 U/L (NOT ESTABLISHED); CHOLESTEROL, BODY FLUID 44 MG/DL (NOT ESTABLISHED); LDH, BODY FLUID 376 U/L (NOT ESTABLISHED); SOURCE, BODY FLUID AMYLASE PLEURAL; SOURCE, BODY FLUID CHOL PLEURAL; SOURCE, BODY FLUID LDH PLEURAL
[2023-12-11 18:51] LABS: SOURCE, BODY FLUID TOT PROTEIN PLEURAL; TOTAL PROTEIN, BODY FLUID 3.2 G/DL (NOT ESTABLISHED)
[2023-12-11] MEDS ORDERED: LEVEMIR (INSULIN DETEMIR) 1 UNITS/0.01ML SC SCH (21:00)
[2023-12-11] MEDS: ACETAMINOPHEN 500 MG TAB PO PRN (21:46)
[2023-12-12] VITALS (24 sets, daily range): BP systolic 96–147; BP diastolic 52–73; TEMP 96.9–99.1; O2SAT 78–99
[2023-12-12 06:11] LABS: HEMATOCRIT 34.9 % (42.0-52.0); HEMOGLOBIN 11.1 g/dl (13.5-17.5); MEAN CORPUSCULAR HEMOGLOBIN 25.3 pg (27.0-33.0); MEAN CORPUSCULAR HGB CONC 31.8 g/dl (32.0-36.5); MEAN CORPUSCULAR VOLUME 79.7 fl (80.0-96.0); PLATELET COUNT, AUTOMATED 229 10^3/uL (150-450); RED BLOOD COUNT 4.38 10^6/uL (4.30-6.10); WHITE BLOOD COUNT 5.3 10^3/uL (4.0-10.0)
[2023-12-12 06:34] LABS: BLOOD UREA NITROGEN 18 MG/DL (9-23); CALCIUM LEVEL 8.7 MG/DL (8.3-10.6); CARBON DIOXIDE LEVEL 29 MMOL/L (20-31); CHLORIDE LEVEL 103 MMOL/L (98-107); CREATININE FOR GFR 0.93 MG/DL (0.70-1.30); GLOMERULAR FILTRATION RATE > 60.0 (>42); GLUCOSE, FASTING 246 MG/DL (74-106); POTASSIUM SERUM 4.5 MMOL/L (3.5-5.1); SODIUM LEVEL 135 MMOL/L (136-145)
[2023-12-12] MEDS: ATORVASTATIN 20 MG TAB PO SCH (08:04)
[2023-12-12] MEDS: OMEPRAZOLE 20MG CAP PO SCH (08:04)
[2023-12-12 09:25] LABS: PH BODY FLUID > 7.800 UNITS (NOT ESTABLISHED); SOURCE, BODY FLUID pH PLEURAL
[2023-12-12 09:47] LABS: SOURCE, BODY FLUID GLUCOSE PLEURAL
[2023-12-12 10:49] LABS: LDH LACTATE DEHYDROGENASE 145 U/L (120-246)
[2023-12-12] MEDS: ALTEPLASE 10MG IN NS 60ML SYRINGE INTRAPLEU ONE (11:35)
[2023-12-12] MEDS: PULMOZYME 5MG IN NS 55ML SYRINGE INTRAPLEU ONE (11:35)
[2023-12-12] MEDS: SODIUM CHLORIDE 0.9% 50 ML IV ONE (11:35)
[2023-12-12 13:15] LABS: ERYTHROCYTE SEDIMENTATION RATE 45 mm/hr (0-20)
[2023-12-12] MEDS: LEVEMIR (INSULIN DETEMIR) 1 UNITS/0.01ML SC SCH (14:53)
[2023-12-13] VITALS (15 sets, daily range): BP systolic 94–136; BP diastolic 51–68; TEMP 97.3–98.5; O2SAT 92–97
[2023-12-13] MEDS: LEVEMIR (INSULIN DETEMIR) 1 UNITS/0.01ML SC ONE (09:27)
[2023-12-13 10:47] LABS: BASO % 0.2 % (0.0-1.0); EOS # 0.1 10^3/uL (0.0-0.5); EOS % 1.2 % (0.0-3.0); HEMATOCRIT 39.4 % (42.0-52.0); HEMOGLOBIN 12.2 g/dl (13.5-17.5); LYMPH % 10.6 % (24.0-44.0); MEAN CORPUSCULAR HEMOGLOBIN 24.3 pg (27.0-33.0); MEAN CORPUSCULAR VOLUME 78.3 fl (80.0-96.0); MONO # 0.6 10^3/uL (0.0-0.8); MONO % 6.5 % (2.0-8.0); NEUTROPHILS # 7.3 10^3/uL (1.5-8.5); NEUTROPHILS % 81.1 % (36.0-66.0); PLATELET COUNT, AUTOMATED 296 10^3/uL (150-450); RED BLOOD COUNT 5.03 10^6/uL (4.30-6.10)
[2023-12-13 11:14] LABS: BLOOD UREA NITROGEN 21 MG/DL (9-23); CALCIUM LEVEL 9.3 MG/DL (8.3-10.6); CARBON DIOXIDE LEVEL 28 MMOL/L (20-31); CHLORIDE LEVEL 99 MMOL/L (98-107); CREATININE FOR GFR 0.89 MG/DL (0.70-1.30); GLOMERULAR FILTRATION RATE > 60.0 (>42); GLUCOSE, FASTING 345 MG/DL (74-106); POTASSIUM SERUM 4.3 MMOL/L (3.5-5.1); SODIUM LEVEL 133 MMOL/L (136-145)
[2023-12-13] MEDS: LEVEMIR (INSULIN DETEMIR) 1 UNITS/0.01ML SC SCH (20:01)
[2023-12-14 04:00] VITALS: BP 108/66; TEMP 98.2; O2SAT 95
[2023-12-14 05:24] LABS: HEMATOCRIT 36.9 % (42.0-52.0); HEMOGLOBIN 11.7 g/dl (13.5-17.5); MEAN CORPUSCULAR HEMOGLOBIN 24.7 pg (27.0-33.0); MEAN CORPUSCULAR HGB CONC 31.7 g/dl (32.0-36.5); PLATELET COUNT, AUTOMATED 267 10^3/uL (150-450); RED BLOOD COUNT 4.73 10^6/uL (4.30-6.10); WHITE BLOOD COUNT 6.9 10^3/uL (4.0-10.0)
[2023-12-14 07:00] VITALS: O2SAT 96
[2023-12-14 07:45] VITALS: BP 113/66; TEMP 97.1; O2SAT 99
[2023-12-14 08:00] VITALS: O2SAT 97
[2023-12-14] MEDS: LEVEMIR (INSULIN DETEMIR) 1 UNITS/0.01ML SC SCH (08:17)
[2023-12-14 08:19] VITALS: BP 113/66
[2023-12-14 09:00] VITALS: O2SAT 96
[2023-12-14] MEDS ORDERED: ZYVO1TAB PO (09:47)
[2023-12-15 13:02] LABS: ANA SCREEN, IFA NEGATIVE (NEGATIVE)
[2023-12-16 13:17] LABS: QuantiFERON-TB Gold Plus NEGATIVE (NEGATIVE)
[2023-12-16 18:26] LABS: FUNGITELL INTERPRETATION NEGATIVE (NEGATIVE); FUNGITELL, SERUM < 31 pg/mL (<60)
[2023-12-16 19:07] LABS: CRYTPOCOCCUS SOURCE Serum
[2023-12-17 18:47] LABS: CRYPTOCOCCUS ANTIBODY SERUM <1:2 (<1:2)
[2023-12-17 19:53] LABS: URINE STREP PNEUMONIAE ANTIGEN NOT DETECTED (NOT DETECT)
== END 2023-12-14 11:25 | disposition home or self-care (01) | DRG 188 ==
LOC: M ED 08:10 → M ED INP 10:15 → M PCU 12:07
PROVIDERS: ADMIT Internal Medicine; ATTEND Internal Medicine
PROC: 0W9930Z Drainage of Right Pleural Cavity with Drainage Device, Percutaneous Approach (ICD-10-PCS; principal; 2023-12-11)
PROC: B246ZZZ Ultrasonography of Right and Left Heart (ICD-10-PCS; 2023-12-11)
DX: J90 Pleural effusion, not elsewhere classified (principal); E11.42 Type 2 diabetes mellitus with diabetic polyneuropathy; I10 Essential (primary) hypertension; E78.5 Hyperlipidemia, unspecified; K21.9 Gastro-esophageal reflux disease without esophagitis; R63.4 Abnormal weight loss; D50.9 Iron deficiency anemia, unspecified; R16.1 Splenomegaly, not elsewhere classified; E11.649 Type 2 diabetes mellitus with hypoglycemia without coma; G89.29 Other chronic pain; M54.9 Dorsalgia, unspecified; I27.20 Pulmonary hypertension, unspecified; I36.1 Nonrheumatic tricuspid (valve) insufficiency; Z98.42 Cataract extraction status, left eye; M25.519 Pain in unspecified shoulder; Z79.899 Other long term (current) drug therapy; Z79.4 Long term (current) use of insulin; Z96.651 Presence of right artificial knee joint; Z98.41 Cataract extraction status, right eye

== ENCOUNTER 2023-12-27 16:36 | Inpatient (IN) | payer MEDICARE ==
[~2023-12-27] VITALS: Ht 175.3 cm; Wt 78.5 kg
[~2023-12-27 16:36] MED LIST changes: +INSU100I14 SQ; +ZYVO1TAB PO
[2023-12-27] MEDS: ONDANSETRON 4MG 2ML VIAL IV ONE (17:01)
[2023-12-27] MEDS: MORPHINE 2 MG/ML 1ML VIAL IV PRN (17:02)
[2023-12-27] MEDS: NS 500 ML IV ONE ×3 (17:02→20:05)
[2023-12-27] MEDS ORDERED: ISOVUE-370 76% 100ML VIAL As Ordered ONE (17:23)
[2023-12-27 17:33] LABS: BASO % 0.2 % (0.0-1.0); HEMATOCRIT 37.1 % (42.0-52.0); LYMPH # 0.4 10^3/uL (1.5-5.0); LYMPH % 3.6 % (24.0-44.0); MEAN CORPUSCULAR HEMOGLOBIN 25.1 pg (27.0-33.0); MEAN CORPUSCULAR HGB CONC 32.3 g/dl (32.0-36.5); MEAN CORPUSCULAR VOLUME 77.6 fl (80.0-96.0); MONO # 0.5 10^3/uL (0.0-0.8); MONO % 4.9 % (2.0-8.0); NEUTROPHILS # 8.8 10^3/uL (1.5-8.5); NEUTROPHILS % 90.9 % (36.0-66.0); PLATELET COUNT, AUTOMATED 199 10^3/uL (150-450); RED BLOOD COUNT 4.78 10^6/uL (4.30-6.10); WHITE BLOOD COUNT 9.7 10^3/uL (4.0-10.0)
[2023-12-27 17:54] LABS: LIPASE 17 U/L (12-53)
[2023-12-27 17:56] LABS: ALBUMIN 3.3 G/DL (3.2-5.2); ALKALINE PHOSPHATASE 114 U/L (40-129); ALT/SGPT 20 U/L (7.0-40); AMYLASE 31 U/L (30-118); AST/SGOT 16 U/L (<34); BILIRUBIN,DIRECT 0.2 MG/DL (<0.4); BILIRUBIN,TOTAL 0.4 MG/DL (0.3-1.2); BLOOD UREA NITROGEN 19 MG/DL (9-23); CALCIUM LEVEL 9.3 MG/DL (8.3-10.6); CARBON DIOXIDE LEVEL 26 MMOL/L (20-31); CHLORIDE LEVEL 104 MMOL/L (98-107); CREATININE FOR GFR 0.83 MG/DL (0.70-1.30); GLOMERULAR FILTRATION RATE > 60.0 (>42); GLUCOSE, FASTING 222 MG/DL (74-106); POTASSIUM SERUM 3.9 MMOL/L (3.5-5.1); SODIUM LEVEL 139 MMOL/L (136-145); TOTAL PROTEIN 6.9 G/DL (5.7-8.2)
[2023-12-27] MEDS: MORPHINE 4 MG/ML 1ML VIAL IV ONE (18:25)
[2023-12-27] MEDS: ACETAMINOPHEN *IV* 1,000 MG in IV 1 EA IV ONE (18:32)
[2023-12-27] MEDS: KETOROLAC 30 MG/ML 1ML VIAL IV ONE (18:33)
[2023-12-27 18:45] LABS: CK-MB VALUE MASS 1.3 NG/ML (<3.6)
[2023-12-27 18:47] LABS: CPK CREATINE PHOSPHOKINASE 157 U/L (46-171); MB/CK RELATIVE INDEX 0.82 (< OR =4)
[2023-12-27] MEDS ORDERED: DEXTROSE 50% 50ML SYRINGE IV PRN (20:05)
[2023-12-27] MEDS ORDERED: GLUCOSE 4 GM CHEW PO PRN (20:05)
[2023-12-27] MEDS ORDERED: ALBUTEROL SULFATE 2.5MG/0.5ML INH NEB SOLN NEB PRN (20:05)
[2023-12-27] MEDS ORDERED: MOM 30ML SUSPENSION UDC PO PRN (20:05)
[2023-12-27] MEDS ORDERED: MAALOX 30 ML SUSP *UDC PO PRN (20:05)
[2023-12-27] MEDS ORDERED: GLUCAGON INJ 1MG VIAL SC PRN (20:05)
[2023-12-27] MEDS ORDERED: IBUPROFEN 600MG TAB PO PRN (20:35)
[2023-12-27] MEDS: INSULIN LISPRO (NovoLOG) PER UNIT SC SCH (21:00)
[2023-12-27] MEDS: DOCUSATE SODIUM 100MG CAPSULE PO SCH (21:00)
[2023-12-27 21:20] LABS: INR 1.06; PROTHROMBIN TIME 14.1 SECONDS (12.5-14.5)
[2023-12-27 22:04] LABS: HEMOGLOBIN A1c 7.8 % (4.0-6.0)
[2023-12-27] MEDS ORDERED: TIZA10TA PO (22:06)
[2023-12-27] MEDS ORDERED: LINE1TAB6 PO (22:06)
[2023-12-27] MEDS ORDERED: HOME MED LIST COMPLETE! XX SCH (22:10)
[2023-12-27 22:21] VITALS: BP 140/77; TEMP 98.2; O2SAT 100
[2023-12-27 23:31] VITALS: BP 145/66; TEMP 97.7; O2SAT 100
[2023-12-27] MEDS: ONDANSETRON 4MG 2ML VIAL IV SCH (23:33)
[2023-12-28] VITALS (11 sets, daily range): BP systolic 125–131; BP diastolic 59–63; TEMP 97.4–98; O2SAT 96–100
[2023-12-28] MEDS: IPRATROPIUM 0.5MG/ALBUTEROL 2.5MG INH SOL UD 3ML (DUONEB) NEB SCH (02:58)
[2023-12-28] MEDS: ACETAMINOPHEN 325 MG TAB PO PRN (03:12)
[2023-12-28] MEDS: HEPARIN SOD (PORCINE) 5000UNITS/ML 1ML VIAL/SYRINGE SC SCH (05:52)
[2023-12-28 06:20] LABS: HEMATOCRIT 33.3 % (42.0-52.0); HEMOGLOBIN 10.7 g/dl (13.5-17.5); MEAN CORPUSCULAR HEMOGLOBIN 25.4 pg (27.0-33.0); MEAN CORPUSCULAR HGB CONC 32.1 g/dl (32.0-36.5); MEAN CORPUSCULAR VOLUME 78.9 fl (80.0-96.0); PLATELET COUNT, AUTOMATED 147 10^3/uL (150-450); RED BLOOD COUNT 4.22 10^6/uL (4.30-6.10); WHITE BLOOD COUNT 8.3 10^3/uL (4.0-10.0)
[2023-12-28 06:49] LABS: ALBUMIN 2.9 G/DL (3.2-5.2); ALKALINE PHOSPHATASE 106 U/L (40-129); ALT/SGPT 17 U/L (7.0-40); AST/SGOT 15 U/L (<34); BILIRUBIN,TOTAL 0.4 MG/DL (0.3-1.2); BLOOD UREA NITROGEN 16 MG/DL (9-23); CALCIUM LEVEL 8.3 MG/DL (8.3-10.6); CARBON DIOXIDE LEVEL 29 MMOL/L (20-31); CHLORIDE LEVEL 104 MMOL/L (98-107); CREATININE FOR GFR 0.82 MG/DL (0.70-1.30); GLOMERULAR FILTRATION RATE > 60.0 (>42); GLUCOSE, FASTING 265 MG/DL (74-106); MAGNESIUM LEVEL 1.7 MG/DL (1.8-2.4); POTASSIUM SERUM 4.2 MMOL/L (3.5-5.1); SODIUM LEVEL 139 MMOL/L (136-145); TOTAL PROTEIN 6.4 G/DL (5.7-8.2)
[2023-12-28] MEDS: INSULIN LISPRO (NovoLOG) PER UNIT SC SCH (07:49)
[2023-12-28] MEDS: PANTOPRAZOLE 40MG TAB (PROTONIX) PO SCH (07:50)
[2023-12-28] MEDS: GABAPENTIN 300 MG CAP PO SCH (10:39)
[2023-12-28] MEDS: ATORVASTATIN 20 MG TAB PO SCH (10:39)
[2023-12-28] MEDS: MAG SULF 1GM/100ML (MAG RUN) 1 GM in IV 1 EA IV ONE (10:43)
[2023-12-28 13:03] LABS: PERCENT SATURATION 17.3 % (19.7-50.0)
[2023-12-28 13:07] LABS: FOLATE 14.06 NG/ML (>5.4)
[2023-12-28] MEDS: ONDANSETRON 4MG 2ML VIAL IV PRN (13:29)
[2023-12-28] MEDS ORDERED: CYCLOBENZAPRINE 5MG TABLET PO SCH (14:00)
[2023-12-28] MEDS ORDERED: HumuLIN N INSULIN (NovoLIN N) PER UNIT SC SCH (17:30)
== END 2023-12-28 14:25 | disposition home or self-care (01) | DRG 187 ==
LOC: M ED 16:36 → M ED INP 20:05 → M PCU 22:13
PROVIDERS: ADMIT Student in an Organized Health Care Education/Training Program; ATTEND Internal Medicine
DX: J90 Pleural effusion, not elsewhere classified (principal); E87.20 Acidosis, unspecified; E11.42 Type 2 diabetes mellitus with diabetic polyneuropathy; K76.0 Fatty (change of) liver, not elsewhere classified; K80.20 Calculus of gallbladder without cholecystitis without obstruction; N40.0 Benign prostatic hyperplasia without lower urinary tract symptoms; I10 Essential (primary) hypertension; E78.5 Hyperlipidemia, unspecified; K21.9 Gastro-esophageal reflux disease without esophagitis; N52.9 Male erectile dysfunction, unspecified; F41.9 Anxiety disorder, unspecified; D50.9 Iron deficiency anemia, unspecified; F32.A Depression, unspecified; E83.42 Hypomagnesemia; F25.9 Schizoaffective disorder, unspecified; R10.32 Left lower quadrant pain; I27.20 Pulmonary hypertension, unspecified; I36.1 Nonrheumatic tricuspid (valve) insufficiency; Z96.651 Presence of right artificial knee joint; Z98.41 Cataract extraction status, right eye; Z98.42 Cataract extraction status, left eye; Z79.4 Long term (current) use of insulin; Z79.899 Other long term (current) drug therapy

== ENCOUNTER → 2024-02-24 | Outpatient (CLI) | payer MEDICARE ==
[~2024-02-24] MED LIST changes: +LINE1TAB6 PO
[2024-02-24 14:34] LABS: BASO % 0.5 % (0.0-1.0); EOS # 0.2 10^3/uL (0.0-0.5); EOS % 1.8 % (0.0-3.0); HEMATOCRIT 39.5 % (42.0-52.0); HEMOGLOBIN 12.2 g/dl (13.5-17.5); LYMPH # 1.3 10^3/uL (1.5-5.0); LYMPH % 15.4 % (24.0-44.0); MEAN CORPUSCULAR HEMOGLOBIN 24.7 pg (27.0-33.0); MEAN CORPUSCULAR HGB CONC 30.9 g/dl (32.0-36.5); MONO # 0.6 10^3/uL (0.0-0.8); MONO % 7.1 % (2.0-8.0); NEUTROPHILS # 6.1 10^3/uL (1.5-8.5); NEUTROPHILS % 74.6 % (36.0-66.0); PLATELET COUNT, AUTOMATED 408 10^3/uL (150-450); RED BLOOD COUNT 4.94 10^6/uL (4.30-6.10)
[2024-02-24 14:58] LABS: ALBUMIN 3.4 G/DL (3.2-5.2); ALKALINE PHOSPHATASE 155 U/L (40-129); ALT/SGPT 21 U/L (7.0-40); AST/SGOT 27 U/L (<34); BILIRUBIN,TOTAL 0.3 MG/DL (0.3-1.2); BLOOD UREA NITROGEN 30 MG/DL (9-23); CALCIUM LEVEL 9.7 MG/DL (8.3-10.6); CARBON DIOXIDE LEVEL 27 MMOL/L (20-31); CHLORIDE LEVEL 97 MMOL/L (98-107); CHOLESTEROL LEVEL 135 MG/DL (<200); CHOLESTEROL RISK RATIO 2.45 (<5); CREATININE FOR GFR 1.24 MG/DL (0.70-1.30); GLOMERULAR FILTRATION RATE > 60.0 (>42); GLUCOSE, FASTING 175 MG/DL (74-106); POTASSIUM SERUM 5.4 MMOL/L (3.5-5.1); SODIUM LEVEL 134 MMOL/L (136-145); TOTAL PROTEIN 7.6 G/DL (5.7-8.2); TRIGLYCERIDES LEVEL 80 MG/DL (<150)
[2024-02-24 15:04] LABS: HEMOGLOBIN A1c 7.3 % (4.0-6.0)
[2024-02-25 07:03] LABS: WHITE BLOOD COUNT 8.1 10^3/uL (4.0-10.0)
== END ==
LOC: M WUC 09:52
PROVIDERS: ATTEND Internal Medicine
DX: J90 Pleural effusion, not elsewhere classified (principal); E78.5 Hyperlipidemia, unspecified; E11.9 Type 2 diabetes mellitus without complications

== ENCOUNTER 2024-04-27 07:50 | Emergency (ER) | payer MEDICARE ==
[~2024-04-27] VITALS: Ht 175.3 cm; Wt 75.3 kg
[2024-04-27 09:09] LABS: BASO % 0.2 % (0.0-1.0); EOS # 0.1 10^3/uL (0.0-0.5); EOS % 0.4 % (0.0-3.0); HEMATOCRIT 44.8 % (42.0-52.0); HEMOGLOBIN 13.9 g/dl (13.5-17.5); LYMPH # 0.8 10^3/uL (1.5-5.0); LYMPH % 6.2 % (24.0-44.0); MEAN CORPUSCULAR VOLUME 80.4 fl (80.0-96.0); MONO # 0.6 10^3/uL (0.0-0.8); MONO % 4.7 % (2.0-8.0); NEUTROPHILS # 11.7 10^3/uL (1.5-8.5); NEUTROPHILS % 87.8 % (36.0-66.0); PLATELET COUNT, AUTOMATED 417 10^3/uL (150-450); RED BLOOD COUNT 5.57 10^6/uL (4.30-6.10); WHITE BLOOD COUNT 13.3 10^3/uL (4.0-10.0)
[2024-04-27 09:21] LABS: ALBUMIN 3.9 G/DL (3.2-5.2); ALKALINE PHOSPHATASE 144 U/L (40-129); ALT/SGPT 12 U/L (7.0-40); AST/SGOT 19 U/L (<34); BILIRUBIN,DIRECT 0.2 MG/DL (<0.4); BILIRUBIN,TOTAL 0.7 MG/DL (0.3-1.2); BLOOD UREA NITROGEN 26 MG/DL (9-23); CALCIUM LEVEL 10.1 MG/DL (8.3-10.6); CARBON DIOXIDE LEVEL 25 MMOL/L (20-31); CHLORIDE LEVEL 98 MMOL/L (98-107); CREATININE FOR GFR 1.04 MG/DL (0.70-1.30); GLOMERULAR FILTRATION RATE > 60.0 (>42); GLUCOSE, FASTING 117 MG/DL (74-106); POTASSIUM SERUM 4.7 MMOL/L (3.5-5.1); SODIUM LEVEL 136 MMOL/L (136-145); TOTAL PROTEIN 8.3 G/DL (5.7-8.2)
[2024-04-27] MEDS ORDERED: ISOVUE-370 76% 100ML VIAL As Ordered ONE (09:45)
[2024-04-27] MEDS: ONDANSETRON 4MG 2ML VIAL IV ONE (09:48)
[2024-04-27] MEDS: PANTOPRAZOLE 40MG VIAL IV ONE (09:48)
[2024-04-27] MEDS: NS (Normal Saline) 0.9% 1,000 ML IV ONE (09:48)
[2024-04-27 09:59] LABS: CK-MB VALUE MASS < 1.0 NG/ML (<3.6)
[2024-04-27 10:01] LABS: CPK CREATINE PHOSPHOKINASE 80 U/L (46-171); MB/CK RELATIVE INDEX 1.25 (< OR =4)
[2024-04-27 12:33] LABS: CK-MB VALUE MASS < 1.0 NG/ML (<3.6)
[2024-04-27 12:35] LABS: CPK CREATINE PHOSPHOKINASE 62 U/L (46-171); MB/CK RELATIVE INDEX 1.61 (< OR =4)
[2024-04-27 13:12] VITALS: BP 114/56; TEMP 97.3; O2SAT 98
[2024-04-27] MEDS ORDERED: CARA1TAB6 PO (13:19)
[2024-04-27] MEDS ORDERED: REGL10TA6 PO (13:19)
[2024-04-27] MEDS ORDERED: PROT1TAB2 PO (13:19)
[2024-04-27] MEDS ORDERED: ONDA-282 PO (13:19)
== END 2024-04-27 13:25 | disposition home or self-care (01) ==
LOC: M ED 07:50
DX: R11.2 Nausea with vomiting, unspecified (principal); K27.9 Peptic ulcer, site unspecified, unspecified as acute or chronic, without hemorrhage or perforation; R00.0 Tachycardia, unspecified; E11.9 Type 2 diabetes mellitus without complications; I10 Essential (primary) hypertension; E78.5 Hyperlipidemia, unspecified; Z79.4 Long term (current) use of insulin; Z79.84 Long term (current) use of oral hypoglycemic drugs; Z79.899 Other long term (current) drug therapy
CPT/HCPCS: 71045; 74177; 80048; 80076; 82550; 82553; 84484; 85025; 87486; 87581; 87633; 87798; 93005; 93041; 94760; 96374; 99285; J2405; J2470; Q9967

== ENCOUNTER → 2024-06-16 | Outpatient (CLI) | payer MEDICARE ==
[~2024-06-16] MED LIST changes: +CARA1TAB6 PO; +ONDA-282 PO; +PROT1TAB2 PO; +REGL10TA6 PO
== END ==
LOC: M RAD 08:11
PROVIDERS: ATTEND Internal Medicine
DX: J90 Pleural effusion, not elsewhere classified (principal)

== ENCOUNTER → 2024-06-29 | Outpatient (CLI) | payer MEDICARE ==
[2024-06-29 08:35] LABS: BASO % 0.3 % (0.0-1.0); EOS # 0.2 10^3/uL (0.0-0.5); EOS % 2.3 % (0.0-3.0); HEMATOCRIT 36.3 % (42.0-52.0); HEMOGLOBIN 11.3 g/dl (13.5-17.5); MEAN CORPUSCULAR HEMOGLOBIN 24.9 pg (27.0-33.0); MEAN CORPUSCULAR HGB CONC 31.1 g/dl (32.0-36.5); MONO # 0.5 10^3/uL (0.0-0.8); MONO % 7.1 % (2.0-8.0); NEUTROPHILS # 5.3 10^3/uL (1.5-8.5); NEUTROPHILS % 75.7 % (36.0-66.0); PLATELET COUNT, AUTOMATED 274 10^3/uL (150-450); RED BLOOD COUNT 4.54 10^6/uL (4.30-6.10); WHITE BLOOD COUNT 6.9 10^3/uL (4.0-10.0)
== END ==
LOC: M LAB 08:11
PROVIDERS: ATTEND Internal Medicine Cardiovascular Disease
DX: I20.89 Other forms of angina pectoris (principal)

== ENCOUNTER → 2024-07-01 | Outpatient (CLI) | payer MEDICARE ==
[2024-07-01 12:35] LABS: CALCIUM LEVEL 9.2 MG/DL (8.3-10.6); CREATININE FOR GFR 0.94 MG/DL (0.70-1.30); GLOMERULAR FILTRATION RATE 83.5 (>42); POTASSIUM SERUM 4.2 MMOL/L (3.5-5.1)
== END ==
LOC: M LAB 11:44
PROVIDERS: ATTEND Internal Medicine Cardiovascular Disease
DX: I20.89 Other forms of angina pectoris (principal)

== ENCOUNTER → 2024-09-14 | Outpatient (REF) | payer MEDICARE ==
[~2024-09-14] MED LIST changes: +FAMO40TA3 PO; +FERR325T3 PO; +ISOS1TAB35 PO; +MIRT1TAB16 PO; +NEUR300C PO; +TOPR50TA PO
[2024-09-14 16:08] LABS: APPEARANCE, URINE CLEAR (CLEAR); BACTERIA, URINE AUTO NEGATIVE (NEGATIVE); BILIRUBIN, URINE AUTO NEGATIVE (NEGATIVE); BLOOD, URINE BLOOD NEGATIVE (NEGATIVE); GLUCOSE, URINE (UA) AUTO 1+ mg/dL (NEGATIVE); KETONE, URINE AUTO NEGATIVE (NEGATIVE); LEUKOCYTE ESTERASE, URINE AUTO NEGATIVE (NEGATIVE); NITRITE, URINE AUTO NEGATIVE (NEGATIVE); PROTEIN, URINE AUTO NEGATIVE (NEGATIVE); RBC, URINE AUTO 0 /HPF (0-3); SPECIFIC GRAVITY URINE AUTO 1.013 (1.002-1.035); SQUAMOUS EPITHELIAL CELL UR AU 0 /HPF (0-6); UROBILINOGEN, URINE AUTO 0.2 mg/dL (0.0-2.0); WBC, URINE AUTO 1 /HPF (0-3)
[2024-09-14 16:37] LABS: TOTAL PROTEIN,RANDOM URINE 18.8 MG/DL (0.0-14.0)
== END ==
LOC: M SFHCRHEU 10:16
PROVIDERS: ATTEND Internal Medicine
DX: R76.8 Other specified abnormal immunological findings in serum (principal); R79.82 Elevated C-reactive protein (CRP); R70.0 Elevated erythrocyte sedimentation rate

== ENCOUNTER → 2024-09-15 | Outpatient (CLI) | payer MEDICARE ==
[2024-09-15 09:15] LABS: BASO # 0.0 10^3/uL (0.0-0.2); BASO % 0.6 % (0.0-1.0); EOS # 0.2 10^3/uL (0.0-0.5); EOS % 2.7 % (0.0-3.0); LYMPH # 1.0 10^3/uL (1.5-5.0); LYMPH % 15.0 % (24.0-44.0); MONO # 0.5 10^3/uL (0.0-0.8); MONO % 7.3 % (2.0-8.0); NEUTROPHILS # 4.9 10^3/uL (1.5-8.5); NEUTROPHILS % 73.6 % (36.0-66.0); PLATELET COUNT, AUTOMATED 345 10^3/uL (150-450)
[2024-09-15 09:28] LABS: ERYTHROCYTE SEDIMENTATION RATE 103 mm/hr (0-20)
[2024-09-15 09:36] LABS: C REACTIVE PROTEIN QUANTITATIV 2.68 MG/DL (<1.0); COMPLEMENT C4 58.1 MG/DL (12-36)
[2024-09-15 09:37] LABS: ALT/SGPT 21.0 U/L (7.0-40); AST/SGOT 24.0 U/L (<34); CALCIUM LEVEL 9.5 MG/DL (8.3-10.6); CARBON DIOXIDE LEVEL 32.0 MMOL/L (20-31); CHLORIDE LEVEL 94.0 MMOL/L (98-107); CREATININE FOR GFR 1.18 MG/DL (0.70-1.30); GLOMERULAR FILTRATION RATE 63.2 (>42); POTASSIUM SERUM 5.5 MMOL/L (3.5-5.1); SODIUM LEVEL 134.0 MMOL/L (136-145)
== END ==
LOC: M LAB 07:59
PROVIDERS: ATTEND Internal Medicine
DX: R76.8 Other specified abnormal immunological findings in serum (principal); R79.82 Elevated C-reactive protein (CRP); R70.0 Elevated erythrocyte sedimentation rate

== ENCOUNTER → 2024-11-19 | Outpatient (CLI) | payer MEDICARE | LOC: M WUC 10:45 | PROVIDERS: ATTEND Internal Medicine | DX: J90 Pleural effusion, not elsewhere classified (principal) ==